=== PATIENT | male | born 1985 | race Caucasian/White ===

== ENCOUNTER 2017-09-11 19:28 | Emergency (ER) | payer OTHER, SELFPAY ==
[2017-09-11 19:38] VITALS: BP 126/75; PULSE 80; RESP 16; TEMP 36.8; O2SAT 98
--- NOTE | 2017-09-11 19:52 | DI.REPORT_ITS ---
SYMPTOM/DIAGNOSIS: PATELLA PAIN AFTER ANTERIOR CONTUSION RIGHT KNEE: Three views. No priors for comparison No acute fracture or dislocation is identified. No radiopaque foreign bodies are seen in the soft tissues. There is mild soft tissue swelling seen in the prepatellar soft tissues. IMPRESSION: No acute fracture or dislocation. 2. Mild soft tissue swelling anteriorly.
--- NOTE | 2017-09-11 19:54 | ED.GENADUL ---
Disposition Clinical Impression: Contusion of right patella Disposition: HOME Condition: Good Instructions: Contusion in Adults (ED) Additional Instructions: Home to rest today. Elevate leg to reduce pain and swelling. May apply ice to reduce pain and swelling 20 minutes at a time. Tylenol and/or ibuprofen if needed for discomfort. 2 days off of work. Return to the ER for any acute concerns. Forms: Work Release Medical Decision Making - Medical Decision Making This is a 32-year-old male with right anterior knee contusion yesterday, followed by pain and swelling today. Differential diagnosis would include bony contusion versus underlying osseous injury. Patient referred for x-ray without evidence of underlying acute bony injury. Stable for discharge home with conservative management of patella contusion. 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 Did not suffer any other injury. He did not fall or hurt himself. Since that time he has had the gradual onset of moderate, achy, constant nonradiating anterior knee pain on the right. Worse with movement, improved with rest. He tried to go to back to work tonight and was referred to the emergency room due to the pain. - Related Data Allergies Allergy/AdvReac Type Severity Reaction Status Date / Time bee venom protein (honey bee) Allergy Mild Skin Rash Unverified 09/11/17 19:37 acetaminophen [From Vicodin] AdvReac Intermediate Unverified 09/11/17 19:37 hydrocodone [From Vicodin] AdvReac Intermediate Unverified 09/11/17 19:37 oxycodone [From Percocet] AdvReac Intermediate Unverified 09/11/17 19:37 Review of Systems Other: 4 systems reviewed, otherwise negative Past Medical History - Past Medical History Medical history: no medical history Surgical history: no surgical history Family history: no significant family history - Social History Alcohol use: rarely Drug use: marijuana General Exam - General Limitations: no limitations General appearance: alert, in no apparent distress - Head Head exam: Present: atraumatic, normocephalic - Eye Eye exam: Present: PERRL, EOMI - Respiratory Respiratory exam: Absent: respiratory distress - Extremities Exam Extremities exam: Present: tenderness, normal capillary refill, other (Right anterior patella abrasion, tenderness. There is no laxity of the joint. No tenderness of the tibia, fibula, distal femur. Full range of motion.) - Neurological Exam Neurological exam: Present: alert, oriented X3 - Psychiatric Psychiatric exam: Present: normal affect, normal mood - Skin Skin exam: Present: warm, dry, intact Course Vital Signs - 24 hr 09/11/17 19:38 Temperature 36.8 C Pulse 80 Respiratory 16 Rate Blood Pressure 126/75 Pulse Oximetry 98
--- NOTE | 2017-09-11 20:32 | DI.VRAD_ITS ---
EXAM: XR Right Knee, 3 views CLINICAL HISTORY: 32 years old, male; Pain; Knee; Right; Patient HX: Patella pain after anterior contusion TECHNIQUE: Three views of the right knee. COMPARISON: CR - LEFT KNEE 3 VIEW COMPLETE 2017-04-17 19:22 FINDINGS: Bones/joints: Unremarkable. No acute fracture. No dislocation. Soft tissues: The lateral view demonstrates some mild-moderate anterior prepatellar soft tissue swelling present. IMPRESSION: 1. Mild-moderate anterior prepatellar soft tissue swelling is demonstrated in the lateral view. Dictated and Authenticated by: Ochoa Cast MD. Ordering:JAYDEN TOSCANO MD
== END 2017-09-11 20:36 | disposition home or self-care (01) ==
PROVIDERS: Emergency Provider Emergency Medicine
DX: S80.01XA Contusion of right knee, initial encounter (principal); W22.8XXA Striking against or struck by other objects, initial encounter
CPT/HCPCS: 73562; 99283

== ENCOUNTER → 2017-09-14 14:53 | Outpatient (CLI) | payer OTHER, SELFPAY ==
--- NOTE | 2017-09-18 11:10 | ONE_ITS ---
DATE OF SERVICE: September 14, 2017 CHIEF COMPLAINT: Right knee pain. ASSESSMENT: Right anterior knee pain. EDUCATION: 1. Conservative management is often effective for resolution of symptoms. 2. Developing healthy coping strategies for ADHD and depression would better benefit Hung than THC usage. PLAN: 1. Work restrictions - refer to Work Status Form. 2. Ibuprofen 800 mg TID (#42). 3. Ice PRN. 4. Occ Med follow-up in one week. Return to clinic sooner if condition worsens. More than 50% of this visit spent in the planning and coordination of care. Plan of care reviewed with patient who verbalized understanding and agreement. 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 Around 8:30 p.m. on 09/10/17 Hung was quickly moving to the side of his machine. He jumped onto a small ramp, missed his footing, and hit his right knee on the hand railing located to the right. Hung was able to continue working his shift without difficulty. He slept well that night. The next morning, 09/11/17, his knee was quite sore and it was difficult to bend. He went to [facility] who wanted to wait for the swelling to decrease before proceeding with x-rays. At work around 7:30 p.m. he informed his employer he was having no relief of pain and the stiffness was worsening. His employer instructed Hung to present to [facility] ED. Hung presents to Occupational Medicine at the request of his employer today. Current discomfort = 4-5/10 and is described as an ache; this ache has decreased from 7/10. He has a limp and notes stairs are difficult. He is able to perform his work duties and ADLs without difficulty. Hung denies prior right injury or surgery. REVIEW OF SYSTEMS: Denies chest pain, palpitations. Denies shortness of breath, dyspnea. Denies headache, visual changes. Denies GI or complaints. PAST MEDICAL HISTORY: 1. Depression. 2. ADHD. 3. Left knee arthritis. 4. Tooth abscess. SOCIAL: Tobacco: 3/4 pack per day. EtOH: None. THC: Self-medicates for ADHD and depression daily. Exercise: Daily walking. Single. Education: High school graduate. MEDICATIONS: PCN - tooth abscess. ALLERGIES: 1. Oxycodone. 2. Hydrocodone. OBJECTIVE: VITAL SIGNS: 120/70, 100.4 -- 80 -- 18. Height 6'. Weight 196. BMI 26.6. PHQ-9 = 11 (moderate) GENERAL: 32-year-old white male. Alert, oriented x3. Conversation appropriate , pleasant. Antalgic gait. CARDIAC: HRR, no murmurs or extra heart sounds. RESPIRATORY: Lungs bilaterally CTA. Respirations unlabored. KNEES: Oliver in color, warm and dry to touch. No evidence of erythema or edema bilaterally. TESTS: Anterior and posterior drawer tests negative bilaterally. Valgus and varus stress test negative bilaterally. RIGHT KNEE: Slight ecchymosis noted medial aspect measuring 5 cm in diameter. Posterior and lateral aspect nontender. Generalized discomfort noted anterior and medial aspect with increased sensitivity of patella. TESTS: Flexion limited to 120 degrees. Extension limited to 5 degrees. Positive patella grind test and positive patella apprehension test. DIAGNOSTIC IMAGIN09/11/17, right knee - IMPRESSION: Mild/moderate anterior prepatellar soft tissue swelling is demonstrated in the lateral view. No acute fracture. No dislocation.
== END ==
PROVIDERS: Visit Provider Nurse Practitioner Family
DX: M25.561 Pain in right knee (principal); W22.09XA Striking against other stationary object, initial encounter; Y99.0 Civilian activity done for income or pay
CPT/HCPCS: 99203

== ENCOUNTER → 2017-09-21 11:22 | Outpatient (CLI) | payer OTHER, SELFPAY ==
--- NOTE | 2017-09-22 13:51 | ONE_ITS ---
DATE OF SERVICE: September 21, 2017 CHIEF COMPLAINT: Right knee pain. 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 ASSESSMENT: Right anterior knee pain. EDUCATION: Good improvement noted with conservative management. PLAN: 1. No work restrictions. 2. Ibuprofen 800 mg t.i.d. p.r.n. 3. Ice p.r.n. 4. Occupational Medicine follow-up appointment in two weeks; return to clinic sooner if condition worsens. Anticipate MMI. More than 50% of this visit spent in the planning and coordination of care. Plan of care reviewed with patient, who verbalized understanding and agreement. ++++++++++++++++++ SUBJECTIVE: Hung presents for c/o right knee pain. Improvement noted since last exam. Discomfort is described as an ache; has decreased to 2/10; remains the medial aspect and is now intermittent. Ache is most noticeable at night. Self-medicating with ibuprofen t.i.d. with good relief. Icing knee 10-20 minutes q1h with good relief. Has also been applying CBD icy hot, which he thinks is beneficial. Ascending and descending stairs is easier. Performing work duties under work restrictions without difficulty. Sleep quality is good. REVIEW OF SYSTEMS: Denies chest pain, palpitations. Denies shortness of breath, dyspnea. Denies headache, visual changes. Denies GI or complaints. PAST MEDICAL HISTORY: 1. Depression. 2. ADHD. 3. Left knee arthritis. 4. Tooth abscess. SOCIAL: Tobacco: 3/4 pack per day. EtOH: None. THC: Self-medicates for ADHD and depression daily. Exercise: Daily walking. Single. Education: High school graduate. MEDICATIONS: PCN - tooth abscess. Ibuprofen. ALLERGIES: 1. Oxycodone. 2. Hydrocodone. OBJECTIVE: GENERAL: 32-year-old white male. Alert, oriented x3. Conversation appropriate. Slightly antalgic gait. RIGHT KNEE: Ecchymosis medial aspect no longer apparent. Posterior and lateral aspects remain nontender. No longer has generalized discomfort anterior and medial aspect and patella is nontender. TESTS: Able to perform deep squat without difficulty. Slight ache noted with assuming standing position.
== END ==
PROVIDERS: Visit Provider Nurse Practitioner Family
DX: M25.561 Pain in right knee (principal)
CPT/HCPCS: 99214

== ENCOUNTER 2017-10-05 13:33 | Outpatient (CLI) | payer SELFPAY ==
--- NOTE | 2017-10-05 15:45 | ONE_ITS ---
DATE OF SERVICE: October 05, 2017 CHIEF COMPLAINT: Right knee pain. 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 ASSESSMENT: Right anterior knee pain. PLAN: 1. MMI. More than 50% of this visit spent in the planning and coordination of care. Plan of care reviewed with patient, who verbalized understanding and agreement. ++++++++++++++++++ SUBJECTIVE: Hung presents for follow-up of right knee pain. States he is almost 100% and is ready to be released to full duty. Hung acknowledges having a slight ache which he attributes to a [id number] activity. He continues with one tablet ibuprofen 4 times per week, usually at night. Sleep pattern is normal. Performing activities at work and home without difficulty or discomfort. REVIEW OF SYSTEMS: Denies chest pain, palpitations. Denies shortness of breath, dyspnea. Denies headache, visual changes. Denies GI or complaints. PAST MEDICAL HISTORY: 1. Depression. 2. ADHD. 3. Left knee arthritis. 4. Tooth abscess. SOCIAL: Tobacco: 3/4 pack per day. ETOH: None. THC: Self-medicates for ADHD and depression daily. Exercise: Daily walking. Single. Education: High school graduate. MEDICATIONS: Ibuprofen. ALLERGIES: 1. Oxycodone. 2. Hydrocodone. OBJECTIVE: GENERAL: 32-year-old white male. Alert, oriented x3. Conversation appropriate , smiling. Smooth, easy, nonantalgic gait. RIGHT KNEE: No discomfort noted. Performed deep squat and assumed standing position without difficulty or discomfort.
== END 2017-10-05 13:34 ==
PROVIDERS: Visit Provider Nurse Practitioner Family
DX: M25.561 Pain in right knee (principal); S80.01XD Contusion of right knee, subsequent encounter
CPT/HCPCS: 99214

== ENCOUNTER 2018-01-04 19:44 | Emergency (ER) | payer OTHER, SELFPAY ==
[2018-01-04 19:56] VITALS: BP 112/65; PULSE 84; RESP 20; TEMP 36.9; O2SAT 96
--- NOTE | 2018-01-04 20:05 | W.ED.GENAD ---
Discharge Plan Disposition Patient Disposition: HOME Condition: Good Discharge Details Chief Complaint: Orthopedic Clinical Impression: Knee pain, left Primary Care Provider: None,None ED Provider: Obie Tomas Home Meds and New Rx's Prescriptions: No Action No Known Home Meds RF: 0 Discharge Instructions Instructions: Knee Pain (ED) Stand Alone Forms: Work Release Medical Decision Making 32 yo male who denies chronic medical problems comes in with left knee pain that started last night, denies falls or other trauma. He does state he walks quite a bit. He has pain with palpation to the left posterior knee without palabple defect and normal viscual inspection, no swelling or redness or warmth and no swelling of the leg or calf pain. Suspect strain vs mcconnell's cyst. No findings to suggest dvt at this time. No findings to suggest septic joint. No trauma and full rom without significant pain so doubt fx. ADvised RICE and f/u with pcp if pain continues and return precautions given Differential Diagnosis strain, mcconnell's cyst, contusion HPI General Mode of arrival: ambulatory. Date/Time Provider Initiated Documentation: 01/04/18 20:01. Limitations to Documentation: no limitations. Information obtained by: patient. History of Present Illness 32 year old M presents to the emergency department with the chief complaint of left knee pain, described as mild, with intensity rated at 3. Quality is described as aching, and is localized to the left and lower extremity. Patient reports no radiation. Patient started experiencing this day(s) (1) and it has been constant. No relieving factors improve symptom(s), No exacerbating factors reported . Patient notes no other symptoms.. Patient did receive the following treatments prior to arrival, none Related Data Home Medications Medication Instructions Recorded Confirmed Unknown [No Known Home Meds] 01/04/18 01/04/18 Allergies Allergy/AdvReac Type Severity Reaction Status Date / Time bee venom protein (honey bee) Allergy Mild Skin Rash Unverified 01/04/18 19:58 acetaminophen [From Vicodin] AdvReac Intermediate Unverified 01/04/18 19:58 hydrocodone [From Vicodin] AdvReac Intermediate Unverified 01/04/18 19:58 oxycodone [From Percocet] AdvReac Intermediate Unverified 01/04/18 19:58 General Stated Complaint: Orthopedic FABI: 3 Review of Systems Review of Systems All systems reviewed & are unremarkable except as noted in HPI and below Constitutional Denies chills, Denies fever(s) and Denies weakness Cardiovascular Denies chest pain and Denies dyspnea Respiratory Denies dyspnea Gastrointestinal Denies abdominal pain, Denies nausea and Denies vomiting Musculoskeletal Denies joint swelling Neurologic Denies weakness Psychiatric Denies depression [facility] Social History Smoking/Tobacco Use Status: Current every day Social History Smoking/Tobacco Use Status: Current every day Exam Const General: no acute distress Orientation: alert HENMT Head: normal to inspection Ears: external ears normal General nose exam: external nose normal Mouth: moist mucous membranes Eyes General: appearance normal, both eyes and all related structures Neck Neck: normal visual inspection Resp Effort & Inspection: normal respiratory effort and able to speak in complete sentences Cardio Rate: regular rate Skin General skin exam: no rashes or lesions noted Neuro General: alert and oriented x3 Extrem General: normal to inspection, full ROM and normal capillary refill Psych Mental Status: mental status grossly normal Course Vital Signs Temperature 36.9 C 01/04/18 19:56 Pulse 84 01/04/18 19:56 Respiratory Rate 20 01/04/18 19:56 Blood Pressure 112/65 01/04/18 19:56 Pulse Oximetry 96 01/04/18 19:56 Temperature 36.9 C 01/04/18 19:56 Temperature Source Temporal Artery Scan 01/04/18 19:56 Pulse 84 01/04/18 19:56 Respiratory Rate 20 01/04/18 19:56 Respiratory Effort Non-Labored 01/04/18 19:56 Blood Pressure 112/65 01/04/18 19:56 Pulse Oximetry 96 01/04/18 19:56 Pain Level 8 01/04/18 19:58
--- NOTE | 2018-01-04 20:09 | ED.GENADUL_ITS ---
Discharge Plan Disposition Patient Disposition: HOME Condition: Good Discharge Details Chief Complaint: Orthopedic Clinical Impression: Knee pain, left Primary Care Provider: None,None ED Provider: Obie Tomas Home Meds and New Rx's Prescriptions: No Action No Known Home Meds RF: 0 Discharge Instructions Instructions: Knee Pain (ED) Stand Alone Forms: Work Release Medical Decision Making 32 yo male who denies chronic medical problems comes in with left knee pain that started last night, denies falls or other trauma. He does state he walks quite a bit. He has pain with palpation to the left posterior knee without palabple defect and normal viscual inspection, no swelling or redness or warmth and no swelling of the leg or calf pain. Suspect strain vs mcconnell's cyst. No findings to suggest dvt at this time. No findings to suggest septic joint. No trauma and full rom without significant pain so doubt fx. ADvised RICE and f/u with pcp if pain continues and return precautions given Differential Diagnosis strain, mcconnell's cyst, contusion HPI General Mode of arrival: ambulatory . Date/Time Provider Initiated Documentation: 01/04/18 20:01 . Limitations to Documentation: no limitations . Information obtained by: patient . History of Present Illness 32 year old M presents to the emergency department with the chief complaint of left knee pain, described as mild, with intensity rated at 3. Quality is described as aching, and is localized to the left and lower extremity. Patient reports no radiation. Patient started experiencing this day(s) (1) and it has been constant. No relieving factors improve symptom(s), No exacerbating factors reported . Patient notes no other symptoms.. Patient did receive the following treatments prior to arrival, none Related Data Home Medications Medication Instructions Recorded Confirmed Unknown [No Known Home Meds] 01/04/18 01/04/18 Allergies Allergy/AdvReac Type Severity Reaction Status Date / Time bee venom protein (honey bee) Allergy Mild Skin Rash Unverified 01/04/18 19:58 acetaminophen [From Vicodin] AdvReac Intermediate Unverified 01/04/18 19:58 hydrocodone [From Vicodin] AdvReac Intermediate Unverified 01/04/18 19:58 oxycodone [From Percocet] AdvReac Intermediate Unverified 01/04/18 19:58 General Stated Complaint: Orthopedic FABI: 3 Review of Systems Review of Systems All systems reviewed & are unremarkable except as noted in HPI and below Constitutional Denies chills, Denies fever(s) and Denies weakness Cardiovascular Denies chest pain and Denies dyspnea Respiratory Denies dyspnea Gastrointestinal Denies abdominal pain, Denies nausea and Denies vomiting Musculoskeletal Denies joint swelling Neurologic Denies weakness Psychiatric Denies depression [facility] Social History Smoking/Tobacco Use Status: Current every day Social History Smoking/Tobacco Use Status: Current every day Exam Const General: no acute distress Orientation: alert HENMT Head: normal to inspection Ears: external ears normal General nose exam: external nose normal Mouth: moist mucous membranes Eyes General: appearance normal, both eyes and all related structures Neck Neck: normal visual inspection Resp Effort & Inspection: normal respiratory effort and able to speak in complete sentences Cardio Rate: regular rate Skin General skin exam: no rashes or lesions noted Neuro General: alert and oriented x3 Extrem General: normal to inspection, full ROM and normal capillary refill Psych Mental Status: mental status grossly normal Course Vital Signs Temperature 36.9 C 01/04/18 19:56 Pulse 84 01/04/18 19:56 Respiratory Rate 20 01/04/18 19:56 Blood Pressure 112/65 01/04/18 19:56 Pulse Oximetry 96 01/04/18 19:56 Temperature 36.9 C 01/04/18 19:56 Temperature Source Temporal Artery Scan 01/04/18 19:56 Pulse 84 01/04/18 19:56 Respiratory Rate 20 01/04/18 19:56 Respiratory Effort Non-Labored 01/04/18 19:56 Blood Pressure 112/65 01/04/18 19:56 Pulse Oximetry 96 01/04/18 19:56 Pain Level 8 01/04/18 19:58
[2018-01-04 20:42] VITALS: BP 112/65; PULSE 84; RESP 20; TEMP 36.9; O2SAT 96
== END 2018-01-04 20:42 | disposition home or self-care (01) ==
PROVIDERS: Emergency Provider Emergency Medicine
DX: M25.562 Pain in left knee (principal)
CPT/HCPCS: 99282

== ENCOUNTER 2018-01-19 12:39 | Emergency (ER) | payer OTHER, SELFPAY ==
[2018-01-19 12:48] VITALS: BP 119/80; PULSE 76; RESP 16; TEMP 37.1; O2SAT 97
--- NOTE | 2018-01-19 12:55 | W.ED.GENAD ---
Discharge Plan Disposition Patient Disposition: HOME Condition: Good Discharge Details Chief Complaint: EarProblem Clinical Impression: Acute pain of left ear Primary Care Provider: None,None ED Provider: Lindy Dhillon Home Meds and New Rx's Prescriptions: No Action No Known Home Meds RF: 0 Discharge Instructions Instructions: Earache (ED) Additional Instructions: Encourage hydration. Tylenol and/or Motrin as needed for discomfort. At this time there is no evidence of infection. Have asked morning caregiver to help establish PCP Seek care urgently once again if you develop fevers/chills, increased pain, drainage or other new/worsening symptoms. Medical Decision Making Patient is 32-year-old male presented today with chief complaint of left ear pain. He reports that left ear pain began 3 days ago. Pain is remained persistent. It did improve after he took naproxen this morning. Denies any fevers or chills. No change in hearing. Is not noted any discharge. No trauma. States that he was ill with a cold a few weeks ago but this has since seemed to subside. Denies any sinus discomfort, rhinorrhea or cough. On exam, no signs of infection. TM is not erythematous, no bulgig or loss of landmarks. TM intact, no drainage. No mastoid tenderness, no lymphadenopathy. Advised that there is no evidence acute infection. discussed that htis may be associates with eustachian tube dysfunction. Advised on OTC options to help with symptomatic management. Will give po Tylenol. Discussed new/worsneing symptomst and hwen to seek care urgently once again. All of his quesitons and concerns were addressed, he is in agreement with this plan. HPI General Mode of arrival: ambulatory. Date/Time Provider Initiated Documentation: 01/19/18 12:49. Limitations to Documentation: no limitations. Information obtained by: patient. History of Present Illness 32 year old M presents to the emergency department with the chief complaint of left ear pain, described as moderate, with intensity rated at 5. Quality is described as aching, Patient reports no radiation. Patient started experiencing this day(s) and it has been constant. No relieving factors improve symptom(s), No exacerbating factors reported . Patient notes no other symptoms.; denies chest pain, cough, fever/chills, headaches, nausea/vomiting and rash. Patient did receive the following treatments prior to arrival, NSAID Related Data Home Medications Medication Instructions Recorded Confirmed Unknown [No Known Home Meds] 01/04/18 01/19/18 Allergies Allergy/AdvReac Type Severity Reaction Status Date / Time bee venom protein (honey bee) Allergy Mild Skin Rash Unverified 01/19/18 12:51 acetaminophen [From Vicodin] AdvReac Intermediate Unverified 01/04/18 19:58 hydrocodone [From Vicodin] AdvReac Intermediate Unverified 01/19/18 12:51 oxycodone [From Percocet] AdvReac Intermediate Unverified 01/19/18 12:51 General Stated Complaint: EarProblem FABI: 5 Review of Systems Constitutional Reports as per HPI and Denies headache(s) Eyes Reports as per HPI, Denies eye discharge and Denies irritation ENT Reports as per HPI, Denies abnormal hearing, Denies dental pain, Denies dizziness, Denies ear discharge, Reports otalgia, Denies headache(s), Denies hearing loss, Denies nasal discharge, Denies nasal obstruction, Denies sinus pain, Denies sinus pressure and Denies sore throat Cardiovascular Reports as per HPI, Denies chest pain and Denies dyspnea Respiratory Reports as per HPI, Denies cough and Denies dyspnea Gastrointestinal Reports as per HPI, Denies abdominal pain, Denies change in bowel habits, Denies nausea and Denies vomiting Integumentary/Breasts Reports as per HPI and Denies rash Neurologic Denies abnormal hearing, Denies dizziness and Denies headache(s) [facility] Social History Smoking/Tobacco Use Status: Current every day Exam Const General: cooperative, healthy appearing, comfortable, no acute distress, well developed and well groomed Nutritional Appearance: average body habitus and well nourished Orientation: alert and awake [facility] Head: normal to inspection, normocephalic and atraumatic Ears: hearing grossly normal bilaterally, external ears normal and TM's normal bilaterally General nose exam: external nose normal and nares normal Face and sinus: normal facial exam, sinuses nontender and face symmetric Mouth: oral mucosae normal, lip normal, tongue normal, oropharynx normal and moist mucous membranes Teeth and gingiva: dentition normal Throat: posterior oropharynx normal, tonsils normal and uvula midline Eyes General: appearance normal, both eyes and all related structures Neck Neck: normal visual inspection, full ROM, no lymphadenopathy and no meningeal signs Resp Effort & Inspection: normal respiratory effort, able to speak in complete sentences and no respiratory distress Auscultation: clear to auscultation bilaterally, no rales, no rhonchi and no wheezes Cardio Rate: regular rate Rhythm: regular rhythm Heart Sounds: S1 normal and S2 normal Skin General skin exam: no rashes or lesions noted Neuro General: alert and awake Cognition: normal cognition Speech: speech normal Gait: normal gait Psych Appearance: grossly normal and well kempt Mental Status: mental status grossly normal Speech and Movement: speech and movement normal Course Vital Signs Temperature 37.1 C 01/19/18 12:48 Pulse 76 01/19/18 12:48 Respiratory Rate 16 01/19/18 12:48 Blood Pressure 119/80 01/19/18 12:48 Pulse Oximetry 97 01/19/18 12:48 Temperature 37.1 C 01/19/18 12:48 Temperature Source Skin 01/19/18 12:48 Pulse 76 01/19/18 12:48 Respiratory Rate 16 01/19/18 12:48 Blood Pressure 119/80 01/19/18 12:48 Blood Pressure Position Sitting 01/19/18 12:48 Pulse Oximetry 97 01/19/18 12:48 Oxygen Delivery Method Room Air 01/19/18 12:48 Oxygen Flow Rate 0 01/19/18 12:48 Pain Level 5 01/19/18 12:48
[2018-01-19] MEDS: Acetaminophen 500 MG TAB 1000 MG PO (13:02)
== END 2018-01-19 13:08 | disposition home or self-care (01) ==
LOC: ER 13:09
PROVIDERS: Emergency Provider Physician Assistant
DX: H92.02 Otalgia, left ear (principal); F17.210 Nicotine dependence, cigarettes, uncomplicated
CPT/HCPCS: 99282

== ENCOUNTER 2018-12-19 17:02 | Emergency (ER) | payer OTHER, SELFPAY ==
[2018-12-19 17:11] VITALS: BP 122/70; PULSE 89; RESP 18; TEMP 36.8; O2SAT 98
--- NOTE | 2018-12-19 17:15 | W.ED.GENAD ---
Discharge Plan Disposition Patient Disposition: HOME Condition: Good Discharge Details Chief Complaint: Dizzy/Sync Clinical Impression: Fatigue Primary Care Provider: None,None ED Provider: Lindy Dhillon Home Meds and New Rx's Prescriptions: No Action No Known Home Meds RF: 0 Discharge Instructions Instructions: Fatigue (ED) Additional Instructions: Encourage hydration. Encourage rest. merchandising coordinator will contact you regarding primary care. If you develop fevers/chills, return of symptoms or other new/worsening symptoms please seek care urgently once again. Stand Alone Forms: Work Release Discharge Data Discharge Date/Time-TO BE ENTERED AT DEPARTURE: 12/19/18 19:50 Medical Decision Making Patient is a 33-year-old male presenting today with chief complaint of lapse in memory while driving to work this afternoon. He has had diminished sleep. No fevers or chills. Denies any headache. No focal neurologic deficit. He has not had symptoms like this historically. Is feeling well at this point. On exam, patient appears nontoxic. Neurologic exam is intact. Normal cardiovascular exam. No cardiovascular symptoms. Denies any drug or alcohol use. No recent change of medication. Denies any herbal supplementation or [id number] medications. Plan for labs. As the patient is not endorsing headache, has no neurologic deficit, do not feel that imaging is appropriate or warranted at this time. BGL normal. Labs reviewed. Patient has mild leukocytosis with white count of 13.4. Labs otherwise unremarkable. Patient is positive for THC. Discussed with the patient his symptoms are likely associate with fatigue. He continues to feel well at this point has no symptoms. Has been feeling well since being here. Patient discharged home, was sent home with significant other who will be driving. He is given strict return precautions. Patient does not have a primary care, I have asked her manager medicare marketing help facilitate follow-up appointment for reevaluation. He was given strict return precautions. All his questions and concerns were addressed and is in agreement this plan. HPI General Mode of arrival: ambulatory. Date/Time Provider Initiated Documentation: 12/19/18 17:15. Limitations to Documentation: no limitations. Information obtained by: patient and RN notes reviewed. HPI Narrative: Patient is a 33-year-old male presenting today with chief complaint of change in memory. Reports that he typically works nights. Had a particularly small amount of sleep last night. States he awoke this afternoon feeling otherwise typical. However, partly through his drive, he is a sudden lapse in memory. Does not remember driving to work. States that his memory of being at work is foggy. States that he did have a discussion with his employer who felt that he was not mentating per his typical and felt that he was slow. States that he is feeling currently well. Denies any past medical history. No fevers or chills. No headache. No visual changes. Patient does not have any past medical history. Medical history concerning for diabetes. States he did have crackers upon awakening. Does report mild URI symptoms last night and felt like I was coming down with cold. Related Data Home Medications Medication Instructions Recorded Confirmed Unknown [No Known Home Meds] 01/04/18 12/19/18 Allergies Allergy/AdvReac Type Severity Reaction Status Date / Time bee venom protein (honey bee) Allergy Mild Skin Rash Unverified 12/19/18 17:16 acetaminophen [From Vicodin] AdvReac Intermediate Unverified 12/19/18 17:16 hydrocodone [From Vicodin] AdvReac Intermediate Unverified 12/19/18 17:16 oxycodone [From Percocet] AdvReac Intermediate Unverified 12/19/18 17:16 General Stated Complaint: Dizzy/Sync FABI: 3 Review of Systems Constitutional Constitutional: Reports as per HPI, Denies chills, Reports fatigue, Denies fever(s), Denies frequent falls, Denies headache(s), Denies snoring and Denies weakness Eyes Eyes: Reports as per HPI, Denies blurry vision, Denies change in vision and Reports photophobia ENT Ears, Nose, Mouth, and Throat: Denies vertigo, Denies headache(s) and Denies neck pain Cardiovascular Cardiovascular: Reports as per HPI, Denies chest pain, Denies lightheadedness, Denies radiating jaw, neck or arm pain, Denies dyspnea and Denies dyspnea on exertion Respiratory Respiratory: Reports as per HPI, Denies chest congestion, Denies cough, Denies dyspnea, Denies dyspnea on exertion, Denies snoring, Denies stridor and Denies wheezing Gastrointestinal Gastrointestinal: Reports as per HPI, Denies abdominal pain, Denies change in bowel habits, Denies nausea and Denies vomiting Genitourinary Genitourinary: Reports system reviewed and no additional complaints, except as docu (denies change in urinary habits) Musculoskeletal Musculoskeletal: Reports as per HPI, Denies back pain, Denies myalgias, Denies muscle cramps, Denies neck pain and Denies numbness Integumentary/Breasts Skin/Breast: Reports as per HPI and Denies rash Neurologic Neurologic: Reports as per HPI, Denies abnormal movements, Denies abnormal speech, Denies behavioral changes, Denies confusion, Denies vertigo, Denies frequent falls, Denies headache(s), Denies focal weakness, Reports memory loss, Denies numbness, Denies sensory deficit and Denies weakness Psychiatric Psychiatric: Denies behavioral changes, Denies confusion and Reports memory loss Endocrine Endocrine: Reports fatigue Allergic/Immunologic Allergic/Immunologic: Denies wheezing [facility] Social History Smoking/Tobacco Use Status: Current every day Drug use: Daily Substance use type: does not use Do you feel safe in your relationship?: Yes Exam Const General: cooperative, healthy appearing, uncomfortable, no acute distress, well developed and well groomed Nutritional Appearance: average body habitus and well nourished Orientation: alert, awake and oriented x3 HENMT Head: normal to inspection, no palpable skull fracture, normocephalic and atraumatic Ears: hearing grossly normal bilaterally, external ears normal and TM's normal bilaterally General nose exam: external nose normal Mouth: oral mucosae normal and moist mucous membranes Throat: posterior oropharynx normal Eyes General: appearance normal, both eyes and all related structures Alignment and Position: alignment normal Periorbital: periorbital findings normal Eyelids: eyelids normal Sclera: sclerae normal Cornea: corneas normal Pupils: PERRL EOM: EOM intact bilaterally Neck Neck: normal visual inspection, full ROM, no lymphadenopathy and no meningeal signs Resp Effort & Inspection: normal respiratory effort, able to speak in complete sentences and no respiratory distress Auscultation: clear to auscultation bilaterally, no rales, no rhonchi and no wheezes Cardio Rate: regular rate Rhythm: regular rhythm Heart Sounds: S1 normal and S2 normal GI Inspection: normal to inspection and non-distended Palpation: soft, no hepatosplenomegaly, not firm, no guarding, not rigid and nontender Percussion: normal to percussion Auscultation: normal bowel sounds Back/Spine/Pelvis Cervical Spine: normal cervical lordosis and cervical ROM normal Skin General skin exam: no rashes or lesions noted Neuro General: alert, awake and oriented x3 Cranial Nerves: CN's II-XI intact bilaterally Cognition: normal cognition Speech: speech normal Gait: normal gait Motor: muscle tone normal throughout, strength 5/5 throughout, no pronator drift, no movement abnormalities noted and no fasciculations Sensory Exam: no sensory deficits noted Coordination: [id number] test normal and [id number] test normal Extrem General: normal to inspection, normal capillary refill, no pedal edema and no calf tenderness Psych Appearance: grossly normal and well kempt Mental Status: mental status grossly normal Speech and Movement: speech and movement normal Course Vital Signs Vital signs: Vital Signs Temperature 36.8 C 12/19/18 17:11 Pulse 89 12/19/18 17:11 Respiratory Rate 18 12/19/18 17:11 Blood Pressure 122/70 12/19/18 17:11 Pulse Oximetry 98 12/19/18 17:11 Temperature 36.8 C 12/19/18 17:11 Temperature Source Skin 12/19/18 17:11 Pulse 89 12/19/18 17:11 Respiratory Rate 18 12/19/18 17:11 Blood Pressure 122/70 12/19/18 17:11 Blood Pressure Position Sitting 12/19/18 17:11 Pulse Oximetry 98 12/19/18 17:11 Oxygen Delivery Method Room Air 12/19/18 17:11 Oxygen Flow Rate 0 12/19/18 17:11 Pain Level 2 12/19/18 17:11
[2018-12-19 18:30] LABS: Abs Immature Grans 0.04 k/cumm (0.0-0.09); Absolute Basophil Count 0.01 k/cumm (0.0-0.2); Absolute Eosinophil Count 0.12 k/cumm (0.0-0.7); Absolute Lymphocyte Count 0.55 k/cumm (1.2-3.4); Absolute Monocyte Count 0.55 k/cumm (0.11-0.7); Basophils % 0.1; Eosinophils % 0.9; HCT 46.7 % (40.0-50.0); Immature Grans % 0.3; Lymphocytes % 4.1; Mean Corp. HGB Concentration 34.3 g/dL (32.0-36.0); Mean Corpuscular Hemoglobin 30.2 pg (27.0-33.0); Mean Corpuscular Volume 88.1 fL (80-95); Mean Platelet Volume 10.9 fL (8.0-11.0); Monocytes % 4.1; Neutrophils % 90.5; Platelet Count 285 x1000/uL (130-400); White Blood Cell Count 13.46 k/cumm (4.4-10.8)
[2018-12-19 18:38] LABS: Absolute Neutrophil Count 12.18 k/cumm (1.2-6.7)
[2018-12-19 18:53] LABS: ALT 29 U/L (16-63); AST 16 U/L (15-37); Albumin 3.9 g/dL (3.4-5.0); Alkaline Phosphatase 78 U/L (46-116); Anion Gap 11.8 mmol/L (3-11); BUN 12 mg/dL (7-18); Bilirubin, Total 0.5 mg/dL (0.2-1.0); CO2 22.2 mmol/L (21.0-32.0); CREATININE 1.08 mg/dL (0.70-1.30); Calcium 8.6 mg/dL (8.5-10.1); Chloride 103 mmol/L (98-107); Glucose 94 mg/dL (70-100); Sodium 137 mmol/L (136-145); TSH (W/Ref FT4) 0.32 uIU/mL (0.36-3.74); Total Protein 7.6 g/dL (6.4-8.2)
[2018-12-19 19:08] LABS: *AMPHETAMINES SCREEN URINE Negative (Negative); *BARBITURATES SCREEN URINE Negative (Negative); *BENZODIAZEPINES SCREEN URINE Negative (Negative); Cannabinoids THC POSITIVE (Negative); Cocaine Screen,Urine Negative (Negative); METHADONE URINE SCREEN Negative (Negative); OPIATES URINE SCREEN Negative (Negative)
[2018-12-19 19:10] LABS: Tricyclic Antidepressants Negative (Negative)
[2018-12-19 19:18] LABS: Clarity Clear (Clear); Specific Gravity >= 1.030 (1.005-1.025); pH 5.5 (5-8)
[2018-12-19 19:19] LABS: Bilirubin Negative (Negative); Blood Negative (Negative); Glucose Negative (Negative); Ketones Negative (Negative); Leukocyte Esterase Negative (Negative); Nitrite Negative (Negative); Urobilinogen 0.2 EU/dL (Up TO 0.2)
[2018-12-19 19:28] LABS: FREE T4 1.13 ng/dL (0.76-1.46)
[2018-12-19 19:30] LABS: ETHANOL BLOOD < 3.0 mg/dL (<3)
== END 2018-12-19 19:50 | disposition home or self-care (01) ==
PROVIDERS: Emergency Provider Physician Assistant
DX: R53.83 Other fatigue (principal); D72.829 Elevated white blood cell count, unspecified
CPT/HCPCS: 36415; 36416; 80053; 80307; 82962; 99283; 80320; 81003; 84439; 84443; 85025

== ENCOUNTER 2019-04-24 10:49 | Emergency (ER) | payer OTHER, SELFPAY ==
[2019-04-24 10:54] VITALS: BP 121/79; PULSE 86; RESP 14; TEMP 36.6; O2SAT 96
[2019-04-24 11:01] VITALS: RESP 16
--- NOTE | 2019-04-24 11:07 | ED.GENADUL_ITS ---
Discharge Plan Disposition Patient Disposition: HOME Condition: Stable Discharge Details Chief Complaint: GenMedical Clinical Impression: Encounter for medical screening examination Primary Care Provider: None,None ED Provider: Luis Null Home Meds and New Rx's Prescriptions: No Action No Known Home Meds RF: 0 Discharge Instructions Additional Instructions: At this time you are asymptomatic, I spoke with your daughter's power shovel operator and they see no indication for quarantine. From my standpoint you may return to work. Please watch for new or worsening symptoms and return to the ER or contact her primary care provider. Stand Alone Forms: Work Release Medical Decision Making Presents for a medical screening examination at the request of his employer. He is currently asymptomatic. I have a call placed out to his daughter's power shovel operator's office to see whether or not she is a person of interest in whether or not I can safely discharge this patient and allow him to return to work. Patient is aware of this plan and has no additional questions or concerns I received a phone call back. Apparently child has mild URI-like symptoms, no fever. Mild diarrhea. No recent travel or obvious coronavirus exposure. They are not recommending quarantine or any additional testing. With this being said I will clear Mr. Sue. Medical Records Medical records reviewed: Yes I reviewed the patient's medical records. HPI General Mode of arrival: ambulatory . Date/Time Provider Initiated Documentation: 04/24/19 10:50 . Limitations to Documentation: no limitations . Information obtained by: patient . HPI Narrative: This is a 34-year-old gentleman with no significant past medical history sent to the ER by his employer for a medical screening examination. Patient is currently asymptomatic. He does report that he is a smoker. Apparently his daughter has had a URI over the past 24 hours, subsequently seen in the ER last night at [facility] and now in the office of her power shovel operator. There is no known travel or positive contact with a suspected coronavirus patient. He denies any fever, cough, runny nose, ear pain, sore throat, abdominal pain, nausea, vomiting, chest pain, shortness of breath. Patient's daughter is currently being evaluated by her power shovel operator, I will reach out to them to see whether or not the child is a person of interest and whether or not I can safely return this gentleman back to work Related Data Home Medications Medication Instructions Recorded Confirmed Unknown [No Known Home Meds] 01/04/18 12/19/18 Allergies Allergy/AdvReac Type Severity Reaction Status Date / Time bee venom protein (honey bee) Allergy Mild Skin Rash Unverified 12/19/18 17:16 acetaminophen [From Vicodin] AdvReac Intermediate Unverified 12/19/18 17:16 hydrocodone [From Vicodin] AdvReac Intermediate Unverified 12/19/18 17:16 oxycodone [From Percocet] AdvReac Intermediate Unverified 12/19/18 17:16 General Stated Complaint: GenMedical FABI: 4 Review of Systems Constitutional Constitutional: Denies fever(s) and Denies headache(s) Eyes Eyes: Denies eye discharge ENT Ears, Nose, Mouth, and Throat: Denies headache(s), Denies nasal congestion, Denies nasal discharge and Denies sore throat Cardiovascular Cardiovascular: Denies chest pain and Denies dyspnea Respiratory Respiratory: Denies cough and Denies dyspnea Gastrointestinal Gastrointestinal: Denies abdominal pain, Denies nausea and Denies vomiting Musculoskeletal Musculoskeletal: Denies myalgias Integumentary/Breasts Skin/Breast: Denies rash Neurologic Neurologic: Denies headache(s) [facility] Social History Smoking/Tobacco Use Status: Current every day Tobacco Type: cigarettes Alcohol Intake: never Drug use: Daily Substance use type: marijuana Do you feel safe at home: Yes Do you feel safe in your relationship?: Yes Exam Const General: cooperative, healthy appearing, comfortable and no acute distress Orientation: alert and awake HENMT Head: normal to inspection, normocephalic and atraumatic Ears: external ears normal, TM's normal bilaterally and EAC's normal General nose exam: external nose normal and no nasal discharge Mouth: oral mucosae normal and moist mucous membranes Throat: posterior oropharynx normal Eyes Conjunctivae: conjunctivae normal Neck Neck: normal visual inspection, full ROM, no lymphadenopathy, trachea midline and supple Resp Effort & Inspection: normal respiratory effort and able to speak in complete sentences Auscultation: clear to auscultation bilaterally Cardio Rate: regular rate Rhythm: regular rhythm GI Palpation: soft and nontender Skin General skin exam: no rashes or lesions noted Neuro General: patient alert, patient awake, moves all extremities and no focal motor deficits Sensory Exam: no sensory deficits noted Psych Appearance: grossly normal Mental Status: mental status grossly normal Course Vital Signs Vital signs: Vital Signs Temperature 36.6 C 04/24/19 10:54 Pulse 86 04/24/19 10:54 Respiratory Rate 14 04/24/19 10:54 Blood Pressure 121/79 04/24/19 10:54 Pulse Oximetry 96 04/24/19 10:54 Temperature 36.6 C 04/24/19 10:54 Temperature Source Tympanic 04/24/19 10:54 Pulse 86 04/24/19 10:54 Respiratory Rate 16 04/24/19 11:01 Respiratory Effort Non-Labored 04/24/19 11:01 Respiratory Depth Normal 04/24/19 11:01 Respiratory Pattern Normal 04/24/19 11:01 Blood Pressure 121/79 04/24/19 10:54 Blood Pressure Position Sitting 04/24/19 10:54 Pulse Oximetry 96 04/24/19 10:54 Oxygen Delivery Method Room Air 04/24/19 10:54 Oxygen Flow Rate 0 04/24/19 10:54 Pain Level 0 04/24/19 10:54
== END 2019-04-24 11:50 | disposition home or self-care (01) ==
PROVIDERS: Emergency Provider Physician Assistant
DX: Z04.89 Encounter for examination and observation for other specified reasons (principal)
CPT/HCPCS: 99281

== ENCOUNTER 2019-11-08 12:49 | Emergency (ER) | payer OTHER, SELFPAY ==
[2019-11-08 12:52] VITALS: BP 134/82; PULSE 74; RESP 20; TEMP 36.6; O2SAT 97
--- NOTE | 2019-11-08 13:08 | ED.GENADUL_ITS ---
Discharge Plan Disposition Patient Disposition: HOME Condition: Stable Discharge Details Clinical Impression: Tooth ache Primary Care Provider: None,None ED Provider: Nina Briseno Home Meds and New Rx's Prescriptions: New amoxicillin-pot clavulanate 875-125 mg tablet 1 tab PO BID 10 Days Qty: 20 RF: 0 No Action naproxen sodium [Aleve] 220 mg Capsule 440 mg PO PRN PRNRF: 0 Discharge Instructions Instructions: Toothache (ED) Additional Instructions: Follow up with primary care provider in 3-5 days. Return to ED sooner if any worsening or concerns. Increase oral fluids. Please take Tylenol or Ibuprofen with food every 4-6 hours as needed for pain and swelling. Use Hurricaine gel as instructed may apply up to 3 times daily as needed for pain. Take prescription as directed. Discharge Data Discharge Date/Time-TO BE ENTERED AT DEPARTURE: 11/08/19 13:28 Medical Decision Making Patient given Augmentin here in department and Hurricaine gel instructed on use, verbalized understanding. Will give dental resources to patient prior to discharge. HPI General Mode of arrival: ambulatory . Date/Time Provider Initiated Documentation: 11/08/19 12:53 . Limitations to Documentation: no limitations . Information obtained by: patient . HPI Narrative: 34-year-old male presents to the ER with poor dentition. He is complaining of a left lower molar toothache. Does have some increased swelling and pain noted to his left submandibular jaw. He does have palpable lymphadenopathy noted on that side. There is no area of abscess, drainage or palpable area of fluctuance noted. He has no other complaints at this time. Does appear that his condition is chronic he is a smoker. He does have multiple broken teeth with dental caries. He has been taking naproxen at home which has helped somewhat. He denies fever or trouble swallowing. Related Data Home Medications Medication Instructions Recorded Confirmed amoxicillin-pot clavulanate 1 tab PO BID 10 Days #20 tab 11/08/19 naproxen sodium [Aleve] 440 mg PO PRN PRN 11/08/19 11/08/19 Previous Rx's Medication Instructions Recorded amoxicillin-pot clavulanate 1 tab PO BID 10 Days #20 tab 11/08/19 Allergies Allergy/AdvReac Type Severity Reaction Status Date / Time bee venom protein (honey bee) Allergy Mild Skin Rash Unverified 11/08/19 12:55 acetaminophen [From Vicodin] AdvReac Intermediate Unverified 11/08/19 12:55 hydrocodone [From Vicodin] AdvReac Intermediate Unverified 11/08/19 12:55 oxycodone [From Percocet] AdvReac Intermediate Unverified 11/08/19 12:55 General Stated Complaint: DentalOral FABI: 4 Review of Systems All systems reviewed & are unremarkable except as noted in HPI and below ENT Ears, Nose, Mouth, and Throat: Reports dental pain [facility] Social History Smoking/Tobacco Use Status: Current every day Tobacco Type: cigarettes Alcohol Intake: never Drug use: Daily Substance use type: marijuana Do you feel safe at home: Yes Do you feel safe in your relationship?: Yes Exam HENMT Teeth and gingiva: caries and poor dentition Teeth image: 1. Broken tooth with gingival swelling noted around base, no fluctuance or visible abscess. Throat: posterior oropharynx abnormal erythema; no exudates Course Vital Signs Vital signs: Vital Signs Temperature 36.6 C 11/08/19 12:52 Pulse 74 11/08/19 12:52 Respiratory Rate 20 11/08/19 12:52 Blood Pressure 134/82 11/08/19 12:52 Pulse Oximetry 97 11/08/19 12:52 Temperature 36.6 C 11/08/19 12:52 Temperature Source Skin 11/08/19 12:52 Pulse 74 11/08/19 12:52 Respiratory Rate 20 11/08/19 12:52 Respiratory Effort Non-Labored 11/08/19 12:55 Blood Pressure 134/82 11/08/19 12:52 Blood Pressure Position Sitting 11/08/19 12:52 Pulse Oximetry 97 11/08/19 12:52 Oxygen Delivery Method Room Air 11/08/19 12:52 Oxygen Flow Rate 0 11/08/19 12:52 Pain Level 6 11/08/19 12:52
[2019-11-08] MEDS: Amoxicillin 875/Clav. 125 TAB PO (13:15)
[2019-11-08] MEDS: Benzocaine 20% Gel 30 GM JAR MM (13:19)
[2019-11-08 13:25] VITALS: BP 134/82; PULSE 74; RESP 20; TEMP 36.6; O2SAT 97
== END 2019-11-08 13:28 | disposition home or self-care (01) ==
PROVIDERS: Emergency Provider Registered Nurse Emergency
DX: R68.84 Jaw pain (principal); K08.89 Other specified disorders of teeth and supporting structures
CPT/HCPCS: 99283

== ENCOUNTER 2020-04-07 15:11 | Emergency (ER) | payer OTHER, SELFPAY ==
[2020-04-07 15:19] VITALS: BP 155/95; PULSE 88; RESP 16; TEMP 36.8; O2SAT 98
--- NOTE | 2020-04-07 15:22 | W.ED.GENAD ---
Discharge Plan Disposition Patient Disposition: HOME Condition: Stable Discharge Details Clinical Impression: Pain due to dental caries Primary Care Provider: None,None ED Provider: Nina Briseno Home Meds and New Rx's Prescriptions: No Action No Known Home Meds RF: 0 Discharge Instructions Instructions: Dental Caries (ED) Additional Instructions: Please see a dentist. It may help her to quit smoking. Use the topical anesthetic up to 3 times daily as needed. Take the tramadol once every 12 hours as directed. Please take Tylenol or Ibuprofen with food every 4-6 hours as needed for pain and swelling. Follow up with primary care provider in 3-5 days. Return to ED sooner if any worsening or concerns. Increase oral fluids. Stand Alone Forms: Work Release Discharge Data Discharge Date/Time-TO BE ENTERED AT DEPARTURE: 04/07/20 16:00 Medical Decision Making 35-year-old male presents to the ED with chief complaint of left upper and lower dental pain. He states it is gotten worse at Monday. He denies any fever chills, trouble swallowing, drainage. He does state that he is sensitive to hot foods or liquids, no facial swelling. He is a daily smoker, denies any drugs does endorse marijuana use. At this time there is no evidence of abscess, no drainage or any indication for antibiotic. Patient was given Hurricaine gel benzoin, with a tub to go. Was given 50 mg tramadol here in department and given 2 tablets to go. Offered dental block which patient refused at this time. We will provide dental resources for patient and strongly encourage follow-up with the dentist and or quit smoking. HPI General Mode of arrival: ambulatory. Date/Time Provider Initiated Documentation: 04/07/20 15:21. Limitations to Documentation: no limitations. Information obtained by: patient. HPI Narrative: 35-year-old male presents to the ED with chief complaint of left upper and lower dental pain. He states it is gotten worse at Monday. He denies any fever chills, trouble swallowing, drainage. He does state that he is sensitive to hot foods or liquids, no facial swelling. He is a daily smoker, denies any drugs does endorse marijuana use. Related Data Home Medications Medication Instructions Recorded Confirmed Unknown [No Known Home Meds] 04/07/20 04/07/20 Allergies Allergy/AdvReac Type Severity Reaction Status Date / Time bee venom protein (honey bee) Allergy Mild Skin Rash Unverified 11/08/19 12:55 hydrocodone [From Vicodin] AdvReac Intermediate Unverified 11/08/19 12:55 oxycodone [From Percocet] AdvReac Intermediate Unverified 11/08/19 12:55 General Stated Complaint: DentalOral FABI: 4 Review of Systems All systems reviewed & are unremarkable except as noted in HPI and below Constitutional Constitutional: Denies headache(s) ENT Ears, Nose, Mouth, and Throat: Denies bleeding gums, Reports dental pain, Denies dysphagia, Denies dizziness, Denies otalgia, Denies facial pain, Denies headache(s), Denies hoarseness, Denies lip swelling, Denies mouth lesions, Reports mouth pain, Denies nasal discharge, Denies neck pain, Denies odynophagia, Denies sinus pain, Denies sinus pressure, Denies sore throat and Denies throat swelling Comments: Tooth pain, poor dentition Gastrointestinal Gastrointestinal: Denies dysphagia and Denies odynophagia Musculoskeletal Musculoskeletal: Denies neck pain Neurologic Neurologic: Denies dizziness and Denies headache(s) Allergic/Immunologic Allergic/Immunologic: Denies lip swelling and Denies throat swelling [facility] Social History Smoking/Tobacco Use Status: Current every day Tobacco Type: cigarettes Smoking risk assessment performed?: Yes Alcohol Intake: never Drug use: Daily Substance use type: marijuana Do you feel safe at home: Yes Do you feel safe in your relationship?: Yes Exam Narrative Exam Narrative: Constitutional: Alert and oriented x3. Appears stated age. Normal body habitus. Head: Normocephalic, no trauma. Eyes: Pupils PERRLA, Red reflex noted, EOM's intact. Eyelids symmetrical without lesions, discharge, or swelling. ENT: Bilateral TM's WNL, External ear normal to inspection, no mastoid TTP, swelling, or erythema, Nasal turbinates WNL, no nasal discharge. Poor dentition throughout, no evidence of dental abscess, does have mild surrounding erythemic gingiva, no area of palpable fluctuance noted. Posterior pharynx WNL, no exudate. Chest: RRR, Normal S1, S2, distal pulses intact. Resp: Lungs clear to auscultation bilaterally, no wheezes, rales, or rhonchi. Musculoskeletal: Normal gait, 5/5 strength to all four extremities. Skin: No suspicious rashes or lesions. Capillary refill less than 2 sec. Neurologic: Cranial nerves II-XII intact. Alert and oriented x 3. DTR's intact. Hematologic/Lymphatic: No ecchymosis, no lymphadenopathy. Course Vital Signs Vital signs: Vital Signs Temperature 36.8 C 04/07/20 15:19 Pulse 88 04/07/20 15:19 Respiratory Rate 16 04/07/20 15:19 Blood Pressure 155/95 H 04/07/20 15:19 Pulse Oximetry 98 04/07/20 15:19 Temperature 36.8 C 04/07/20 15:19 Temperature Source Skin 04/07/20 15:19 Pulse 88 04/07/20 15:19 Respiratory Rate 16 04/07/20 15:19 Blood Pressure 155/95 H 04/07/20 15:19 Blood Pressure Position Sitting 04/07/20 15:19 Pulse Oximetry 98 04/07/20 15:19 Oxygen Delivery Method Room Air 04/07/20 15:19 Oxygen Flow Rate 0 04/07/20 15:19 Pain Level 10 04/07/20 15:19
[2020-04-07] MEDS: traMADol 50 MG TAB PO (15:43)
[2020-04-07] MEDS: Benzocaine 20% Gel 30 GM JAR MM (15:44)
--- NOTE | 2020-04-07 15:45 | NUR.NOTE ---
Nursing Note: Referral to establish care given to Care Management. Maggy Kaiser
== END 2020-04-07 16:00 | disposition home or self-care (01) ==
PROVIDERS: Emergency Provider Registered Nurse Emergency
DX: K02.9 Dental caries, unspecified (principal)
CPT/HCPCS: 99283

== ENCOUNTER 2020-12-24 15:05 | Emergency (ER) | payer SELFPAY ==
[2020-12-24 16:04] VITALS: BP 129/68; PULSE 82; RESP 16; TEMP 36.8; O2SAT 97
--- NOTE | 2020-12-24 17:20 | ED.GENADUL_ITS ---
Discharge Plan Disposition Patient Disposition: HOME Condition: Stable Discharge Details Clinical Impression: Left shoulder pain Primary Care Provider: None,None ED Provider: Luis Null Home Meds and New Rx's Prescriptions: New cyclobenzaprine 5 mg tablet 5 mg PO QHS PRNQty: 8 RF: 0 Discharge Instructions Instructions: Shoulder Pain (ED) Additional Instructions: Continue taking qbto-kma-aedohrk anti-inflammatory as directed. Rest, elevate, cool and/or warm compresses every 2 hours for 20 minutes. Wear sling as needed, advance activity as tolerated, she sure to do passive range of motion at least 4 times daily to avoid a frozen shoulder. Flexeril as directed, this medication may cause drowsiness. Please watch for new or worsening symptoms and return to the ER for any concerns. Lastly, I have given you the name and number of our local orthopedic team if your symptoms not improving with conservative measures over the next week. Referrals: Jae Don MD [ [facility] STAFF PHYSICIAN] - Discharge Data Discharge Date/Time-TO BE ENTERED AT DEPARTURE: 12/24/20 17:41 Medical Decision Making This is a 35-year-old male, [id number], denies significant past medical history, presents with left shoulder pain over the past few days, worse with movement and worse when lying down trying to go to bed. He has taken [id number] anti-inflammatories with minimal relief. 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 Patient denies any chest pain, radiation of pain in any direction. Denies cardiac past medical history for early cardiac history in his family. This certainly appears to be musculoskeletal in nature. Given the lack of trauma, x-ray likely little value as I see no indication of dislocation and/or fracture. We did discuss x-ray, patient is comfortable not pursuing x-ray at this time. We discussed options at this time, he is comfortable being discharged in his current condition. Will continue taking anti-inflammatories [id number], I will provide a sling, we discussed the importance of passive range of motion to avoid a frozen shoulder. I will provide a limited prescription of Flexeril to take at nighttime to help with the discomfort and sleeping. We discussed the importance of cool and/or warm compress. He was encouraged to return to the ER for new or worsening symptoms, otherwise I have given him the name and number of our local orthopedic team which she will follow up with in a week or so if symptoms are not improving with conservative measures patient has no additional questions or concerns. This documentation was generated using GoPollGoation system, please disregard any oddities of phrase or misspellings. Medical Records Medical records reviewed: Yes I reviewed the patient's medical records. HPI General Mode of arrival: ambulatory . Date/Time Provider Initiated Documentation: 12/24/20 16:14 . Limitations to Documentation: no limitations . Information obtained by: patient . HPI Narrative: This is a 35-year-old male, [id number], denies significant past medical history, presents to the ER complaining of superior and posterior left shoulder discomfort, moderate currently but worse with movement especially movement over the head. He denies radiation of pain, numbness, tingling, weakness, chest pain, shortness of breath, fever, previous shoulder injury. 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 He has been taking Aleve with minimal improvement. Patient denies any history of cardiac disease or early cardiac disease in his family. Patient states that he feels as though this is muscular in nature. Related Data Home Medications Medication Instructions Recorded Confirmed cyclobenzaprine 5 mg PO QHS PRN #8 tab 12/24/20 Previous Rx's Medication Instructions Recorded cyclobenzaprine 5 mg PO QHS PRN #8 tab 12/24/20 Allergies Allergy/AdvReac Type Severity Reaction Status Date / Time bee venom protein (honey bee) Allergy Mild Skin Rash Unverified 12/24/20 16:08 hydrocodone [From Vicodin] AdvReac Intermediate Unverified 12/24/20 16:08 oxycodone [From Percocet] AdvReac Intermediate Unverified 12/24/20 16:08 General Stated Complaint: Orthopedic FABI: 4 Review of Systems Constitutional Constitutional: Denies fatigue, Denies fever(s) and Denies weakness ENT Ears, Nose, Mouth, and Throat: Denies neck pain Cardiovascular Cardiovascular: Denies chest pain and Denies dyspnea Respiratory Respiratory: Denies cough and Denies dyspnea Gastrointestinal Gastrointestinal: Denies abdominal pain, Denies nausea and Denies vomiting Musculoskeletal Musculoskeletal: Denies back pain, Denies deformity, Reports arthralgias, Denies neck pain, Denies numbness, Reports stiffness and Denies tingling Integumentary/Breasts Skin/Breast: Denies rash Neurologic Neurologic: Denies numbness, Denies tingling and Denies weakness Endocrine Endocrine: Denies fatigue [facility] Active Problem List Pain due to dental caries (Acute) Left shoulder pain (Acute) Social History Smoking/Tobacco Use Status: Current every day Tobacco Type: cigarettes Smoking risk assessment performed?: Yes Alcohol Intake: never Drug use: Daily Substance use type: marijuana Do you feel safe at home: Yes Do you feel safe in your relationship?: Yes Exam Const General: cooperative, healthy appearing, comfortable and no acute distress Orientation: alert, awake and oriented x3 HENMT Head: normal to inspection, normocephalic and atraumatic Eyes General: appearance normal, both eyes and all related structures Conjunctivae: conjunctivae normal Neck Neck: normal visual inspection, full ROM, trachea midline, supple and nontender Chest Chest: normal palpation of entire chest wall Resp Effort & Inspection: normal respiratory effort and able to speak in complete sentences Auscultation: clear to auscultation bilaterally Cardio Rate: regular rate Rhythm: regular rhythm Back/Spine/Pelvis Back: no CVA tenderness and No back tenderness Skin General skin exam: no rashes or lesions noted Neuro General: patient alert, patient awake, moves all extremities and no focal motor deficits Cognition: normal cognition Speech: speech normal Gait: normal gait Motor: muscle tone normal throughout Sensory Exam: no sensory deficits noted Extrem General: normal to inspection, full ROM and capillary refill normal Other: Upper extremities 5 and 5 strength, equal radial pulse and normal capillary refill. Left shoulder has a normal physical appearance, he has diffuse discomfort across his left trapezius and diffuse discomfort on the posterior aspect of the scapula. He has full range of motion but he does wince in pain with movement greater than 90 degrees. There is no swelling, erythema, warmth, signs of trauma. Neuro, vascular, tendon intact. Psych Appearance: grossly normal Mental Status: mental status grossly normal Course Vital Signs Vital signs: Vital Signs Temperature 36.8 C 12/24/20 16:04 Pulse 82 12/24/20 16:04 Respiratory Rate 16 12/24/20 16:04 Blood Pressure 129/68 12/24/20 16:04 Pulse Oximetry 97 12/24/20 16:04 Temperature 36.8 C 12/24/20 16:04 Temperature Source Skin 12/24/20 16:04 Pulse 82 12/24/20 16:04 Respiratory Rate 16 12/24/20 16:04 Respiratory Effort Non-Labored 12/24/20 16:04 Blood Pressure 129/68 12/24/20 16:04 Blood Pressure Position Sitting 12/24/20 16:04 Pulse Oximetry 97 12/24/20 16:04 Oxygen Delivery Method Venti Mask 12/24/20 16:04 Pain Level 8 12/24/20 16:04
== END 2020-12-24 17:41 | disposition home or self-care (01) ==
PROVIDERS: Emergency Provider Physician Assistant
DX: M25.512 Pain in left shoulder (principal); X50.3XXA Overexertion from repetitive movements, initial encounter
CPT/HCPCS: 99283

== ENCOUNTER 2021-07-21 09:02 | Emergency (ER) | payer SELFPAY ==
[2021-07-21 09:06] VITALS: BP 118/75; PULSE 85; RESP 16; TEMP 36.8; O2SAT 98
--- NOTE | 2021-07-21 09:15 | DI.RAD_ITS ---
Exam(s) XR RIBS RT W PA LAT CHEST EXAM: XR RIBS RT W PA LAT CHEST CLINICAL HISTORY: pain right chest wall TECHNIQUE: 2D digital imaging was performed. COMPARISON: No exams were available for comparison FINDINGS: RIGHT RIBS: There are no acute right rib fractures evident. No lytic rib lesions identified. CHEST X-RAY: No lung contusion or pneumothorax. There is no pleural effusion evident. Heart size is normal and there is no significant mediastinal widening. IMPRESSION: 1. No right rib fractures evident. Also no obvious rib lesions. 2. No ipsilateral lung nor pleural abnormality evident. No pneumothorax. Both lungs are clear. DATA REPOSITORY: RADIATION DOSE DELIVERED:
--- NOTE | 2021-07-21 10:05 | ED.GENADUL_ITS ---
Discharge Plan Disposition Patient Disposition: HOME Condition: Good Discharge Details Clinical Impression: Acute chest wall pain, Intercostal muscle strain Primary Care Provider: None,None ED Provider: Tayler Valiente Home Meds and New Rx's Prescriptions: New cyclobenzaprine 10 mg tablet 10 mg PO TID PRNQty: 10 0RF Discharge Instructions Instructions: Muscle Strain (ED), Chest Wall Pain (ED) Additional Instructions: Take ibuprofen 600 mg every 8 hours as needed for pain Take Tylenol 650 mg every 6 hours as needed for breakthrough pain Take Flexeril as needed for persistent pain despite these interventions Continue to take deep breaths you do not develop pneumonia Should you develop persistent fever, chills, shortness of breath, please return to the emergency room for reassessment Stand Alone Forms: Work Release Discharge Data Discharge Date/Time-TO BE ENTERED AT DEPARTURE: 07/21/21 10:15 Medical Decision Making Pulmonary embolism rule out criteria negative No chest x-ray does not show acute abnormality per radiology interpretation my review Will treat for intercostal strain HPI General Date/Time Provider Initiated Documentation: 07/21/21 09:12 . HPI Narrative: This 36-year-old male presents with report of right chest wall pain which started on Monday. He denies known injury to the affected area but states it is very tender with any sort of palpation, lifting his right arm, twisting, and deep bleeding. He denies any shortness of breath. He did not fever this morning reportedly. His daughter was sick with a respiratory symptoms this weekend. Patient denies any cough or any persistent symptoms. He denies fever today. He is otherwise healthy. He denies any associated shortness of breath or nausea. He denies any left-sided pain. He denies any calf pain or swelling. He denies recent flights, surgeries, long drives a history of coagulopathy. Related Data Home Medications Medication Instructions Recorded Confirmed cyclobenzaprine 10 mg tablet 10 mg PO TID PRN #10 tabs 07/21/21 Previous Rx's Medication Instructions Recorded cyclobenzaprine 10 mg tablet 10 mg PO TID PRN #10 tabs 07/21/21 Allergies Allergy/AdvReac Type Severity Reaction Status Date / Time bee venom protein (honey bee) Allergy Mild Skin Rash Unverified 07/21/21 09:09 hydrocodone [From Vicodin] AdvReac Intermediate Unverified 07/21/21 09:09 oxycodone [From Percocet] AdvReac Intermediate Unverified 07/21/21 09:09 General Stated Complaint: Chest/Rib FABI: 4 Review of Systems All systems reviewed & are unremarkable except as noted in HPI and below PFSH All Active Problems (Updated 07/21/21 @ 10:02 by JIMBO Enrique) Pain due to dental caries (Acute) Left shoulder pain (Acute) Acute chest wall pain (Acute) Intercostal muscle strain (Acute) Social History Smoking/Tobacco Use Status: Current every day Tobacco Type: cigarettes Smoking risk assessment performed?: Yes Alcohol Intake: never Drug use: Daily Substance use type: marijuana Do you feel safe at home: Yes Do you feel safe in your relationship?: Yes Exam Const General: cooperative, comfortable and no acute distress Orientation: alert and oriented x3 Chest Other: Reproducible right mid axillary tenderness without crepitus, no rashes or lesions Chest/axillae images: 1. Tenderness to palpation No rashes or lesions Resp Effort & Inspection: normal respiratory effort Auscultation: clear to auscultation bilaterally Other: Lungs clear to auscultation, no respiratory distress Cardio Rate: regular rate Rhythm: regular rhythm Skin General skin exam: no rashes or lesions noted Neuro General: patient alert and patient oriented x3 Extrem Other: No calf swelling or tenderness Distal pulses intact Course Vital Signs Vital signs: Vital Signs Temperature 36.8 C 07/21/21 09:06 Pulse 85 07/21/21 09:06 Respiratory Rate 16 07/21/21 09:06 Blood Pressure 118/75 07/21/21 09:06 Pulse Oximetry 98 07/21/21 09:06 Temperature 36.8 C 07/21/21 09:06 Temperature Source Temporal Artery Scan 07/21/21 09:06 Pulse 85 07/21/21 09:06 Respiratory Rate 16 07/21/21 09:06 Respiratory Effort 07/21/21 09:10 Respiratory Depth Normal 07/21/21 09:10 Respiratory Pattern Normal 07/21/21 09:10 Blood Pressure 118/75 07/21/21 09:06 Blood Pressure Position Sitting 07/21/21 09:06 Pulse Oximetry 98 07/21/21 09:06 Oxygen Delivery Method Room Air 07/21/21 09:06 Oxygen Flow Rate 0 07/21/21 09:06 Pain Level 4 07/21/21 09:10
== END 2021-07-21 10:15 | disposition home or self-care (01) ==
PROVIDERS: Emergency Provider Physician Assistant
DX: S29.011A Strain of muscle and tendon of front wall of thorax, initial encounter (principal); X58.XXXA Exposure to other specified factors, initial encounter
CPT/HCPCS: 99284; 71046; 71100; 99283

== ENCOUNTER 2021-12-31 09:55 | Emergency (ER) | payer SELFPAY ==
[2021-12-31 09:59] VITALS: BP 122/75; PULSE 80; RESP 16; TEMP 36.8; O2SAT 98
--- NOTE | 2021-12-31 10:56 | W.ED.GENAD ---
Discharge Plan Disposition Patient Disposition: Home Condition: Stable Discharge Details Clinical Impression: Cephalgia Primary Care Provider: None,None ED Provider: Luis Null Home Meds and New Rx's Prescriptions: Continued naproxen sodium 220 mg Tablet 220 mg PO PRN PRN Label Comments: usually only takes once per week Discharge Instructions Instructions: General Headache (ED) Additional Instructions: COVID test is negative. Please watch for new or worsening symptoms and return to the ER for any concerns. Otherwise please follow-up with your PCP if symptoms are to persist. Stand Alone Forms: Work Release Medical Decision Making 36-year-old gentleman who reports a daily headache 2/10, today is a 3/10, positive COVID exposure last week, his employer today sent to the ER for COVID test. He is otherwise asymptomatic. He appears well, nontoxic, hemodynamically stable. Lungs clear to auscultation, afebrile, O2 sat 98% on room air. We will perform a POC COVID and flu. No clear indication for additional laboratory values or chest x-ray COVID and flu negative. Send out COVID sent for testing Standard discharge and return precautions were provided. Patient understands, is agreeable to this plan, and has no additional questions or concerns upon discharge. This documentation was generated using tinyclues dictation system, please disregard any oddities of phrase or misspellings. Medical Records Medical records reviewed: Yes I reviewed the patient's medical records. Lab Data Lab results reviewed: Yes I reviewed the patient's lab results. Labs: POC flu and COVID-negative Sign Out No HPI General Mode of arrival: ambulatory. Date/Time Provider Initiated Documentation: 12/31/21 10:27. Limitations to Documentation: no limitations. Information obtained by: patient. HPI Narrative: This is a 36-year-old gentleman who denies significant past medical history reports that he typically has a headache every day 2 out of 10, chronic cough secondary to smoking, went to work today and reported he had a 3 out of 10 headache, positive COVID exposure last week, employer sent to the ER for COVID testing. Patient reports otherwise he feels well. He denies fever, change of his cough, shortness of breath, chest pain abdominal pain, nausea or vomiting. He has not taken any rtkx-alm-mtoaqco medications for his symptoms. Related Data Home Medications Medication Instructions Recorded Confirmed naproxen sodium 220 mg tablet 220 mg PO PRN PRN 12/31/21 12/31/21 Allergies Allergy/AdvReac Type Severity Reaction Status Date / Time bee venom protein (honey bee) Allergy Mild Skin Rash Unverified 12/31/21 10:05 hydrocodone [From Vicodin] AdvReac Intermediate Unverified 12/31/21 10:05 oxycodone [From Percocet] AdvReac Intermediate Unverified 12/31/21 10:05 General Stated Complaint: Headache FABI: 4 Review of Systems Constitutional Constitutional: Denies fever(s) ENT Ears, Nose, Mouth, and Throat: Denies sore throat Cardiovascular Cardiovascular: Denies chest pain and Denies dyspnea Respiratory Respiratory: Reports cough and Denies dyspnea Gastrointestinal Gastrointestinal: Denies abdominal pain, Denies nausea and Denies vomiting Musculoskeletal Musculoskeletal: Denies myalgias Integumentary/Breasts Skin/Breast: Denies rash PFSH All Active Problems (Updated 12/31/21 @ 10:59 by JIMBO Zhao) Pain due to dental caries (Acute) Left shoulder pain (Acute) Cephalgia (Acute) Social History Smoking/Tobacco Use Status: Current every day Tobacco Type: cigarettes Smoking risk assessment performed?: Yes Alcohol Intake: never Drug use: Daily Substance use type: marijuana Do you feel safe at home: Yes Do you feel safe in your relationship?: Yes Exam Const General: cooperative, healthy appearing, comfortable and no acute distress Orientation: alert and awake HENAR Head: normal to inspection, normocephalic and atraumatic Face and sinus: normal facial exam Mouth: moist mucous membranes Throat: posterior oropharynx normal Eyes General: appearance normal, both eyes and all related structures Conjunctivae: conjunctivae normal Neck Neck: normal visual inspection, full ROM, no meningeal signs, trachea midline and supple Resp Effort & Inspection: normal respiratory effort and able to speak in complete sentences Auscultation: clear to auscultation bilaterally Cardio Rate: regular rate Rhythm: regular rhythm Skin General skin exam: no rashes or lesions noted Neuro General: patient alert, patient awake, moves all extremities and no focal motor deficits Sensory Exam: no sensory deficits noted Psych Appearance: grossly normal Mental Status: mental status grossly normal Course Vital Signs Vital signs: Vital Signs Temperature 36.8 C 12/31/21 09:59 Pulse 80 12/31/21 09:59 Respiratory Rate 16 12/31/21 09:59 Blood Pressure 122/75 12/31/21 09:59 Pulse Oximetry 98 12/31/21 09:59 Temperature 36.8 C 12/31/21 09:59 Temperature Source Skin 12/31/21 09:59 Pulse 80 12/31/21 09:59 Respiratory Rate 16 12/31/21 09:59 Blood Pressure 122/75 12/31/21 09:59 Blood Pressure Position Sitting 12/31/21 09:59 Pulse Oximetry 98 12/31/21 09:59 Oxygen Delivery Method Room Air 12/31/21 09:59 Oxygen Flow Rate 0 12/31/21 09:59 Pain Level 3 12/31/21 10:08 Comment 12/31/21 09:59
== END 2021-12-31 11:08 | disposition home or self-care (01) ==
PROVIDERS: Emergency Provider Physician Assistant
DX: R51.9 Headache, unspecified (principal); Z20.822 Contact with and (suspected) exposure to COVID-19; R05.3 Chronic cough; F17.210 Nicotine dependence, cigarettes, uncomplicated
CPT/HCPCS: 99282; U0003

== ENCOUNTER 2022-02-04 15:33 | Emergency (ER) | payer SELFPAY ==
[2022-02-04 15:36] VITALS: BP 125/71; PULSE 90; RESP 18; TEMP 37.6; O2SAT 97
--- NOTE | 2022-02-04 16:03 | ED.GENADUL_ITS ---
Discharge Plan Disposition Patient Disposition: Home Condition: Improving Discharge Details Clinical Impression: Acute viral syndrome Primary Care Provider: None,None ED Provider: Dakotah Zhang Home Meds and New Rx's Prescriptions: New ondansetron HCl 4 mg tablet 4 mg PO TID 5 Days Qty: 15 0RF Continued naproxen sodium 220 mg Tablet 220 mg PO PRN PRN Label Comments: usually only takes once per week Discharge Instructions Instructions: Viral Syndrome (ED) Additional Instructions: Home to rest this evening. Small, frequent sips of fluids to maintain hydration. See enclosed work note. May use the provided Zofran as needed for nausea. Return to the ER for any acute concerns. Your COVID and influenza test were negative this evening. Stand Alone Forms: Work Release Medical Decision Making 36-year-old male presents from work with a report of 2 to 3 days of nausea, vomiting, loose and watery stool. Reports stomach cramps as well, and a mild headache. He is well-appearing, normal vital signs. His work puts him at risk for flu and COVID exposure. Patient given Zofran and ibuprofen, referred for [id number] influenza and COVID test. Viral swabs are negative. Patient improving with oral medications. Will offer Zofran for home. He may have a work note. He is stable and appropriate for discharge. HPI General Mode of arrival: ambulatory . Date/Time Provider Initiated Documentation: 02/04/22 15:50 . Limitations to Documentation: no limitations . Information obtained by: patient . History of Present Illness 36 year old M presents to the emergency department with the chief complaint of Nausea, stomach cramps, headache, described as mild and moderate, and is localized to the head and abdomen. Patient reports no radiation. Patient started experiencing this day(s) and it has been intermittent. No relieving factors improve symptom(s), No exacerbating factors reported . Patient notes fever/chills, headaches and loss of appetite; denies cough, nausea/vomiting, rash, shortness of breath and syncope. Patient did receive the following treatments prior to arrival, none Related Data Home Medications Medication Instructions Recorded Confirmed naproxen sodium 220 mg tablet 220 mg PO PRN PRN 12/31/21 12/31/21 ondansetron HCl 4 mg tablet 4 mg PO TID 5 days #15 tabs 02/04/22 Previous Rx's Medication Instructions Recorded ondansetron HCl 4 mg tablet 4 mg PO TID 5 days #15 tabs 02/04/22 Allergies Allergy/AdvReac Type Severity Reaction Status Date / Time bee venom protein (honey bee) Allergy Mild Skin Rash Unverified 12/31/21 10:05 hydrocodone [From Vicodin] AdvReac Intermediate Unverified 12/31/21 10:05 oxycodone [From Percocet] AdvReac Intermediate Unverified 12/31/21 10:05 General Stated Complaint: Nausea/Vomit/Diar FABI: 3 Review of Systems Narrative: 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 8 systems were reviewed. PFSH All Active Problems (Updated 02/04/22 @ 16:35 by Dakotah Zhang MD) Pain due to dental caries (Acute) Left shoulder pain (Acute) Acute viral syndrome (Acute) Social History Smoking/Tobacco Use Status: Current every day Tobacco Type: cigarettes Smoking risk assessment performed?: Yes Alcohol Intake: never Drug use: Daily Substance use type: marijuana Do you feel safe at home: Yes Do you feel safe in your relationship?: Yes Exam Narrative Exam Narrative: GEN: awake, alert, oriented 3. Pleasant, well groomed, interactive. HEAD: Normocephalic, atraumatic ENT: Mucous membranes moist, oropharynx erythematous, External ear exam unremarkable EYES: PERRL, EOMI NECK: Full ROM, no ANA MARIA, no menigismus CHEST/RESP: Nontender, clear to auscultation bilateral, no wheeze/rhonchi/rales CARDIOVASCULAR: RRR, no murmur, rub khanh. 2+ Rad pulse bilateral ABDOMEN: Soft, nontender, no mass. +Bowel sounds EXT: Full ROM, no edema, no rash Neuro: Grossly normal neurologic exam, conversant, interactive. Psych: Speech fluent, thoughts congruent, affect normal Course Vital Signs Vital signs: Vital Signs Temperature 37.6 C 02/04/22 15:36 Pulse 90 02/04/22 15:36 Respiratory Rate 18 02/04/22 15:36 Blood Pressure 125/71 02/04/22 15:36 Pulse Oximetry 97 02/04/22 15:36 Temperature 37.6 C 02/04/22 15:36 Temperature Source Tympanic 02/04/22 15:36 Pulse 90 02/04/22 15:36 Respiratory Rate 18 02/04/22 15:36 Respiratory Effort 02/04/22 15:38 Blood Pressure 125/71 02/04/22 15:36 Blood Pressure Position Supine 02/04/22 15:36 Pulse Oximetry 97 02/04/22 15:36 Oxygen Delivery Method Room Air 02/04/22 15:36 Oxygen Flow Rate 0 02/04/22 15:36 Pain Level 5 02/04/22 15:36
== END 2022-02-04 17:53 | disposition home or self-care (01) ==
PROVIDERS: Emergency Provider Emergency Medicine
DX: B34.9 Viral infection, unspecified (principal); R11.2 Nausea with vomiting, unspecified; R19.7 Diarrhea, unspecified
CPT/HCPCS: 99283

== ENCOUNTER 2022-02-25 14:11 | Emergency (ER) | payer SELFPAY ==
[2022-02-25 14:14] VITALS: BP 127/79; PULSE 98; RESP 16; TEMP 36.7; O2SAT 96
[2022-02-25 14:36] LABS: Bilirubin Small (Negative); Blood Negative (Negative); Clarity Clear (Clear); Glucose Negative (Negative); Ketones Trace mg/dL (Negative); Leukocyte Esterase Negative (Negative); Nitrite Negative (Negative); Specific Gravity >= 1.030 (1.005-1.025); Urobilinogen 0.2 EU/dL (Up TO 0.2); pH 5.5 (5-8)
--- NOTE | 2022-02-25 14:45 | DI.CT_ITS ---
Exam(s) CT ABDOMEN PELVIS WO EXAM: CT ABDOMEN PELVIS WO CLINICAL HISTORY: Mid back pain, Fever, R/O Kidney stone. TECHNIQUE: Imaging Protocol: Axial computed tomography images with coronal and sagittal reformatted images were created and reviewed. COMPARISON: No exams were available for comparison FINDINGS: ABDOMEN: Lung Bases: Normal where visualized. Liver: Normal density. No measurable mass. Gallbladder and biliary tract: No radiodense calculus or biliary ductal dilation. Pancreas: Normal density, no abnormal calcifications or inflammatory process. Spleen: Normal. Kidneys: Normal size, contour and axis.No radiodense stones or obstructive uropathy. No masses seen. Adrenal glands: No mass is seen. Lymph nodes: Within normal limits. Abdominal Aorta: Abdominal portion non-dilated. Atherosclerosis is present. PELVIS: Bladder:Symmetric distention, no gross wall thickening. Bowel: There is diverticulosis of the colon but no evidence of acute diverticulitis. No evidence of bowel obstruction. Appendix is unremarkable. Peritoneal cavity: No ascites, collection or mesenteric inflammatory response. No free air. Reproductive organs: Unremarkable as visualized. Bones: Within normal limits. Soft Tissues: Within normal limits. IMPRESSION: 1. No acute abdominal or pelvic process. 2. Findings were discussed with Luis Null at 4:10 p.m. on 02/25/2022. RADIATION DOSE DELIVERED: 823.43mGy.cm Total DLP DATA REPOSITORY: All CT scans at this facility are submitted to the National Radiology Data Registry (NRDR) Dose Index Registry (DIR) with the [employer] (ACR). RADIATION OPTIMIZATION: All CT scans at this facility use at least one of these dose optimization te chniques: automated exposure control; mA and/or kV adjustment per patient size (includes targeted exa ms where dose is matched to clinical indication); or iterative reconstruction.
--- NOTE | 2022-02-25 14:52 | ED.GENADUL_ITS ---
Discharge Plan Disposition Patient Disposition: Home Condition: Improving Discharge Details Clinical Impression: Back pain, Leukocytosis Primary Care Provider: None,None ED Provider: Luis Null Home Meds and New Rx's Prescriptions: New cyclobenzaprine 10 mg tablet 10 mg PO TID PRNQty: 10 0RF Continued naproxen sodium 220 mg Tablet 220 mg PO PRN PRN Label Comments: usually only takes once per week Discharge Instructions Instructions: Back Pain (ED), Leukocytosis (ED) Additional Instructions: Work-up in the ER does not reveal any obvious emergent process. Please take Flexeril as directed, this medication may cause drowsiness. Gentle stretching as tolerated. Cool and/or warm compresses every 2 hours for 20 minutes. Lxig-sxv-[id number] medications such as Tylenol, Motrin, Lidoderm patches, etc. as directed for symptomatic control. Please watch for new or worsening symptoms a nd return to the ER for any concerns. Lastly, please contact your primary care provider to discuss your ER visit, ongoing symptoms, and need for outpatient reevaluation. Stand Alone Forms: Work Release Medical Decision Making <Nina Briseno NP - Last Filed: 02/25/22 15:39> 36-year-old male presents to the ER with chief complaint of mid back pain which began acutely prior to arrival. Reports that it began this morning. He did not take any Tylenol or ibuprofen prior to arrival. He denies any injury. He also notes that he had a fever yesterday which went away. He does endorse some generalized abdominal pain which he was seen for he reports beginning of the month. He does endorse marijuana use denies any other illicit drugs or alcohol. He does have a full body papular rash with some excoriations which he reports that he recently got rid of some bedbugs. CBC CMP urinalysis, IV liter normal saline Toradol and Zofran ordered. CT abdomen pelvis without contrast ordered rule out kidney stone. UA shows trace ketones small bilirubin negative for blood no leukocytes nitrites no evidence of UTI. Differential diagnosis includes musculoskeletal pain, kidney stone, UTI, other infection. Care is to be handed off to oncoming provider Luis Null pending CT results. Expected disposition discharged with possible muscle relaxer pending CT. This text was generated using [employer] system, please disregard any oddities of phrase or misspellings. Lab Data Lab results reviewed: Yes I reviewed the patient's lab results. Labs: Laboratory Tests Range/Units 02/25/22 02/25/22 02/25/22 14:20 14:55 14:55 WBC (4.4-10.8) 10^3/uL 15.50 H RBC (4.36-5.78) 10^6/uL 5.55 Hgb (13.5-17.5) g/dL 16.6 Hct (40.0-50.0) % 49.1 MCV (80-95) fL 89 MCH (27.0-33.0) pg 29.9 MCHC (32.0-36.0) % 33.8 RDW (11.8-14.1) % 12.2 Plt Count (130-400) 10^3/uL 336 MPV (8.0-11.0) fL 9.3 Immature Gran % 0.3 Neutrophils % 78.2 Lymphocytes % 13.1 Monocytes % 6.5 Eosinophils % 1.4 Basophils % 0.5 Nucleated RBC % (0.0-0.3) % 0.0 Absolute Neutrophils (1.2-6.7) 10^3/uL 12.12 H Absolute Lymphocytes (1.2-3.4) 10^3/uL 2.03 Absolute Monocytes (0.1-0.8) 10^3/uL 1.01 H Absolute Eosinophils (0.0-0.7) 10^3/uL 0.22 Absolute Basophils (0.0-0.2) 10^3/uL 0.08 Sodium (136-145) mmol/L 139 Potassium (3.5-5.1) mmol/L 4.4 Chloride (98-107) mmol/L 100 Carbon Dioxide (21.0-32.0) mmol/L 29.2 Anion Gap (3-11) mmol/L 9.8 BUN (7-18) mg/dL 18 Creatinine (0.70-1.30) mg/dL 1.3 Est GFR (CKD-EPI 2020) (mL/min/1.73m2) 73.93 Glucose (74-106) mg/dL 94 Calcium (8.5-10.1) mg/dL 9.7 Total Bilirubin (0.2-1.0) mg/dL 0.5 AST (15-37) U/L 20 ALT (16-63) U/L 27 Alkaline Phosphatase (46-116) U/L 93 Total Protein (6.4-8.2) g/dL 8.6 H Albumin (3.4-5.0) g/dL 4.4 Urine Color (Yellow) Yellow Urine Clarity (Clear) Clear Urine pH (5-8) 5.5 Ur Specific [place] (1.005-1.025) >= 1.030 H Urine Protein (Negative) mg/dL Negative Urine Ketones (Negative) mg/dL Trace H Urine Blood (Negative) Negative Urine Nitrite (Negative) Negative Urine Bilirubin (Negative) Small H Urine Urobilinogen (Up TO 0.2) EU/dL 0.2 Ur Leukocyte Esterase (Negative) Negative Urine Glucose (Negative) mg/dL Negative <JIMBO Zhao - Last Filed: 02/25/22 16:54> 36-year-old male presents to the ER with chief complaint of mid back pain which began acutely prior to arrival. Reports that it began this morning. He did not take any Tylenol or ibuprofen prior to arrival. He denies any injury. He also notes that he had a fever yesterday which went away. He does endorse some generalized abdominal pain which he was seen for he reports beginning of the month. He does endorse marijuana use denies any other illicit drugs or alcohol. He does have a full body papular rash with some excoriations which he reports that he recently got rid of some bedbugs. CBC CMP urinalysis, IV liter normal saline Toradol and Zofran ordered. CT abdomen pelvis without contrast ordered rule out kidney stone. UA shows trace ketones small bilirubin negative for blood no leukocytes nitrites no evidence of UTI. Differential diagnosis includes musculoskeletal pain, kidney stone, UTI, other infection. Care is to be handed off to oncoming provider Luis Null pending CT results. Expected disposition discharged with possible muscle relaxer pending CT. This text was generated using [employer] dictation system, please disregard any oddities of phrase or misspellings. 1530: Luis Null PA-C I assumed care of this 36-year-old gentleman from my colleague NIKA Briseno, please see her initial HPI and examination. Laboratory values have revealed non specific leukocytosis of 15.50. The only other labs we have for comparison also revealed leukocytosis back in 2019. Laboratory values are otherwise grossly unremarkable. Awaiting CT imaging. Upon evaluation patient is resting comfortably. He reports that overall he is feeling improvement with the medications, denies any nausea whatsoever but does report right-sided back pain, better with rest, worse with movement. He does have reproducible right-sided paravertebral lower thoracic and upper lumbar discomfort, there is no erythema, warmth, midline point tenderness. He denies any IV drug use, change in bowel or bladder function. CT imaging is unremarkable for acute abdominal or pelvic process. Discussed work-up with patient. Patient feels overall improvement and is comfortable discharge. He is agreeable to trialing a muscle relaxer and he will continue [id number] medication such as Tylenol and/or Motrin. I will provide a work note for today and tomorrow. Standard discharge and return precautions were provided. Patient understands, is agreeable to this plan, and has no additional questions or concerns upon discharge. This documentation was generated using [employer] system, please disregard any oddities of phrase or misspellings. Medical Records Medical records reviewed: Yes I reviewed the patient's medical records. Imaging Data Radiologic Study: Attestation: I personally reviewed and interpreted this imaging study as follows: Imaging: CT Scan Radiologist's impression: COMPARISON: No exams were available for comparison FINDINGS: ABDOMEN: Lung Bases: Normal where visualized. Liver: Normal density. No measurable mass. Gallbladder and biliary tract: No radiodense calculus or biliary ductal dilation. Pancreas: Normal density, no abnormal calcifications or inflammatory process. Spleen: Normal. Kidneys: Normal size, contour and axis.No radiodense stones or obstructive uropathy. No masses seen. Adrenal glands: No mass is seen. Lymph nodes: Within normal limits. Abdominal Aorta: Abdominal portion non-dilated. Atherosclerosis is present. PELVIS: Bladder:Symmetric distention, no gross wall thickening. Bowel: There is diverticulosis of the colon but no evidence of acute diverticulitis. No evidence of bowel obstruction. Appendix is unremarkable. Peritoneal cavity: No ascites, collection or mesenteric inflammatory response. No free air. Reproductive organs: Unremarkable as visualized. Bones: Within normal limits. Soft Tissues: Within normal limits. IMPRESSION: 1. No acute abdominal or pelvic process. 2. Findings were discussed with Luis Null at 4:10 p.m. on 02/25/2022. HPI <Nina Briseno NP - Last Filed: 02/25/22 15:39> General Mode of arrival: ambulatory . Date/Time Provider Initiated Documentation: 02/25/22 14:31 . Limitations to Documentation: no limitations . Information obtained by: patient, RN notes reviewed and old records reviewed . HPI Narrative: 36-year-old male presents to the ER with chief complaint of mid back pain which began acutely prior to arrival. Reports that it began this morning. He did not take any Tylenol or ibuprofen prior to arrival. He denies any injury. He also notes that he had a fever yesterday which went away. He does endorse some generalized abdominal pain which he was seen for he reports beginning of the month. He does endorse marijuana use denies any other illicit drugs or alcohol. He does have a full body papular rash with some excoriations which he reports that he recently got rid of some bedbugs. Related Data Home Medications Medication Instructions Recorded Confirmed naproxen sodium 220 mg tablet 220 mg PO PRN PRN 12/31/21 12/31/21 cyclobenzaprine 10 mg tablet 10 mg PO TID PRN #10 tabs 02/25/22 Previous Rx's Medication Instructions Recorded cyclobenzaprine 10 mg tablet 10 mg PO TID PRN #10 tabs 02/25/22 Allergies Allergy/AdvReac Type Severity Reaction Status Date / Time bee venom protein (honey bee) Allergy Mild Skin Rash Unverified 02/25/22 16:05 hydrocodone [From Vicodin] AdvReac Intermediate Unverified 02/25/22 16:05 oxycodone [From Percocet] AdvReac Intermediate Unverified 02/25/22 16:05 General Stated Complaint: Nk/Back Pain FABI: 3 Review of Systems <Nina Briseno NP - Last Filed: 02/25/22 15:39> All systems reviewed & are unremarkable except as noted in HPI and below ENT Ears, Nose, Mouth, and Throat: Denies neck pain Genitourinary Genitourinary: Reports as per HPI, Denies difficulty urinating, Reports flank pain and Denies testicular pain Musculoskeletal Musculoskeletal: Reports as per HPI, Reports back pain, Denies loss of height, Denies neck pain and Reports stiffness Integumentary/Breasts Skin/Breast: Reports as per HPI and Reports rash PFSH <Nina Briseno NP - Last Filed: 02/25/22 15:39> All Active Problems (Updated 02/25/22 @ 16:53 by JIMBO Zhao) Pain due to dental caries (Acute) Left shoulder pain (Acute) Acute viral syndrome (Acute) Back pain (Acute) Leukocytosis (Acute) Social History Smoking/Tobacco Use Status: Current every day Tobacco Type: cigarettes Smoking risk assessment performed?: Yes Alcohol Intake: never Drug use: Daily Substance use type: marijuana Do you feel safe at home: Yes Do you feel safe in your relationship?: Yes Exam <Nina Briseno NP - Last Filed: 02/25/22 15:39> Narrative Exam Narrative: Constitutional: Alert and oriented x3. Appears stated age. Normal body habitus. Patient appears nontoxic. Head: Normocephalic, no trauma. Eyes: Pupils PERRL, Red reflex noted, EOM's intact. Eyelids symmetrical without lesions, discharge, or swelling. ENT: External ear normal to inspection, no mastoid TTP, swelling, or erythema. Chest: RRR, Normal S1, S2, distal pulses intact. Resp: Lungs clear to auscultation bilaterally, no wheezes, rales, or rhonchi. Abdomen: Soft, non-distended, Normoactive bowel sounds all 4 quads. Nontender to palpation all 4 quadrants. : Right CVA tenderness, Musculoskeletal: Normal gait, 5/5 strength to all four extremities. Right paraspinous tenderness with palpation. Skin: Dry largely distributed maculopapular rash noted full body, with excoriations appears chronic. No surrounding induration or signs of infection. Capillary refill less than 2 sec. Neurologic: Cranial nerves II-XII intact. Alert and oriented x 3. Motor: No deficits noted. Sensory: Intact bilaterally all 4 extremities. Reflexes: DTR's intact bilaterally.. Hematologic/Lymphatic: No ecchymosis, no lymphadenopathy. Course <Nina Briseno NP - Last Filed: 02/25/22 15:39> Vital Signs Vital signs: Vital Signs Temperature 36.7 C 02/25/22 14:14 Pulse 98 H 02/25/22 14:14 Respiratory Rate 16 02/25/22 14:14 Blood Pressure 127/79 02/25/22 14:14 Pulse Oximetry 96 02/25/22 14:14 Temperature 36.7 C 02/25/22 14:14 Pulse 98 H 02/25/22 14:14 Respiratory Rate 16 02/25/22 14:14 Blood Pressure 127/79 02/25/22 14:14 Pulse Oximetry 96 02/25/22 14:14 Oxygen Delivery Method Room Air 02/25/22 14:14 Oxygen Flow Rate 0 02/25/22 14:14 Pain Level 8 02/25/22 14:14 Lab/Test Results Lab/Test Results: Laboratory Tests Range/Units 02/25/22 14:20 Urine Color (Yellow) Yellow Urine Clarity (Clear) Clear Urine pH (5-8) 5.5 Ur Specific [place] (1.005-1.025) >= 1.030 H Urine Protein (Negative) mg/dL Negative Urine Ketones (Negative) mg/dL Trace H Urine Blood (Negative) Negative Urine Nitrite (Negative) Negative Urine Bilirubin (Negative) Small H Urine Urobilinogen (Up TO 0.2) EU/dL 0.2 Ur Leukocyte Esterase (Negative) Negative Urine Glucose (Negative) mg/dL Negative Sign Out <Nina Briseno NP - Last Filed: 02/25/22 15:39> Sign Out Data: Sign Out Comment: 36-year-old male back pain, right CVA tenderness, fever yesterday, pending CT abdomen pelvis. No known injury denies neuro symptoms. Given Toradol and Zofran. Last updated by Nina Briseno NP at 02/25/22 15:37
[2022-02-25 15:02] LABS: Abs Immature Grans 0.05 10^3/uL (0.0-0.06); Absolute Eosinophil Count 0.22 10^3/uL (0.0-0.7); Absolute Lymphocyte Count 2.03 10^3/uL (1.2-3.4); Basophils % 0.5; Eosinophils % 1.4; HCT 49.1 % (40.0-50.0); HGB 16.6 g/dL (13.5-17.5); Immature Grans % 0.3; Lymphocytes % 13.1; MCH 29.9 pg (27.0-33.0); MCHC 33.8 % (32.0-36.0); MCV 89 fL (80-95); MPV 9.3 fL (8.0-11.0); Monocytes % 6.5; Neutrophils % 78.2; Platelet Count 336 10^3/uL (130-400); RBC 5.55 10^6/uL (4.36-5.78); RDW 12.2 % (11.8-14.1)
[2022-02-25 15:03] LABS: Absolute Basophil Count 0.08 10^3/uL (0.0-0.2); Absolute Monocyte Count 1.01 10^3/uL (0.1-0.8); Absolute Neutrophil Count 12.12 10^3/uL (1.2-6.7)
[2022-02-25] MEDS: Ondansetron 4 MG/2 ML VIAL IVP (15:04)
[2022-02-25] MEDS: Ketorolac 15 MG/ML VIAL IVP (15:06)
[2022-02-25] MEDS: Normal Saline 1,000 ML 1000 ML IV (15:07)
[2022-02-25 15:22] LABS: ALT 27 U/L (16-63); AST 20 U/L (15-37); Albumin 4.4 g/dL (3.4-5.0); Alkaline Phosphatase 93 U/L (46-116); Anion Gap 9.8 mmol/L (3-11); BUN 18 mg/dL (7-18); Bilirubin, Total 0.5 mg/dL (0.2-1.0); CO2 29.2 mmol/L (21.0-32.0); CREATININE 1.3 mg/dL (0.70-1.30); Calcium 9.7 mg/dL (8.5-10.1); Chloride 100 mmol/L (98-107); Estimated GFR 73.93 (mL/min/1.73m2); Glucose 94 mg/dL (74-106); Potassium 4.4 mmol/L (3.5-5.1); Sodium 139 mmol/L (136-145); Total Protein 8.6 g/dL (6.4-8.2)
[2022-02-25 17:09] VITALS: BP 118/72; PULSE 72; RESP 18; O2SAT 97
== END 2022-02-25 17:11 | disposition home or self-care (01) ==
PROVIDERS: Registered Nurse Emergency; Emergency Provider Physician Assistant
DX: M54.9 Dorsalgia, unspecified (principal); D72.829 Elevated white blood cell count, unspecified; R21 Rash and other nonspecific skin eruption
CPT/HCPCS: 80053; 96361; 96374; 96375; 99284; 74176; 81003; 85025; J1885; J2405

== ENCOUNTER 2022-06-15 14:02 | Emergency (ER) | payer SELFPAY ==
[2022-06-15 14:15] VITALS: BP 124/68; PULSE 77; RESP 18; TEMP 37; O2SAT 98
--- NOTE | 2022-06-15 14:15 | DI.RAD_ITS ---
Exam(s) XR WRIST RT COMPLETE EXAM: XR WRIST RT COMPLETE CLINICAL HISTORY: pain 2 days. TECHNIQUE: 2D digital imaging was performed. Three views. COMPARISON: No exams were available for comparison FINDINGS: BONES: No acute fracture is present. No bony destructive lesion is seen. JOINTS: The carpal bones are normally aligned. SOFT TISSUE: Normal. IMPRESSION: Unremarkable radiographs of the right wrist. DATA REPOSITORY: RADIATION DOSE DELIVERED:
--- NOTE | 2022-06-15 14:22 | ED.GENADUL_ITS ---
Discharge Plan Disposition Patient Disposition: Home Condition: Stable Discharge Details Clinical Impression: Right wrist sprain Primary Care Provider: None,None ED Provider: Obie Tomas Home Meds and New Rx's Prescriptions: Continued naproxen sodium 220 mg Tablet 220 mg PO PRN PRN Patient Comments: usually only takes once per week Discontinued cyclobenzaprine 10 mg tablet 10 mg PO TID PRNQty: 10 0RF Patient Comments: not taking Discharge Instructions Instructions: Wrist Sprain (ED) Additional Instructions: your xray did not show concerning findings if pain continues in a week follow up with your primary care provider if you feel more ill, have severe worsening pain or fevers return to the emergency department Medical Decision Making 37 yo male with no chronic medical problems comes in with right wrist pain for 2 days. He states he was lowering himself onto his bed Monday and put his right arm down and since has had pain over the medial portion of the wrist. Denies swelling warmth, redness. He arrives stable, appears well in no distress. He localizes the pain to the radial side of the wrist. He has full rom of the wrist. No swelling or warmth. HAS intact sensation and pulses. full rom of the fingers. No pain in the forearm or elbow, no snuffbox tenderness. 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 Will place in splint for comfort, advised to f/u with pcp if pain continues next week and return precautions given Differential Diagnosis Differential Diagnosis: fracture, tendonitis, strain Imaging Data Radiologic Study: Attestation: I personally reviewed and interpreted this imaging study as follows: Imaging: X-Ray My impression: no acute findings HPI General Mode of arrival: ambulatory . Date/Time Provider Initiated Documentation: 06/15/22 14:18 . Limitations to Documentation: no limitations . Information obtained by: patient . History of Present Illness 37 year old M presents to the emergency department with the chief complaint of right wrist pain, described as moderate, Patient started experiencing this day(s) (2) and it has been constant. Rest improves symptom(s), Movement worsens symptoms . Patient notes no other symptoms.. Patient did receive the following treatments prior to arrival, none Related Data Home Medications Medication Instructions Recorded Confirmed naproxen sodium 220 mg tablet 220 mg PO PRN PRN 12/31/21 06/15/22 Allergies Allergy/AdvReac Type Severity Reaction Status Date / Time bee venom protein (honey bee) Allergy Mild Skin Rash Unverified 06/15/22 14:17 hydrocodone [From Vicodin] AdvReac Intermediate Unverified 06/15/22 14:17 oxycodone [From Percocet] AdvReac Intermediate Unverified 06/15/22 14:17 General Stated Complaint: Orthopedic FABI: 4 Review of Systems All systems reviewed & are unremarkable except as noted in HPI and below Constitutional Constitutional: Denies chills, Denies fever(s) and Denies weakness Cardiovascular Cardiovascular: Denies chest pain and Denies dyspnea Respiratory Respiratory: Denies cough and Denies dyspnea Gastrointestinal Gastrointestinal: Denies abdominal pain, Denies nausea and Denies vomiting Musculoskeletal Musculoskeletal: Denies joint swelling Neurologic Neurologic: Denies weakness PFSH All Active Problems (Updated 06/15/22 @ 14:49 by Obie Tomas MD) Pain due to dental caries (Acute) Left shoulder pain (Acute) Right wrist sprain (Acute) Social History Smoking/Tobacco Use Status: Current every day Tobacco Type: cigarettes Smoking risk assessment performed?: Yes Alcohol Intake: never Drug use: Occasionally Substance use type: marijuana Do you feel safe at home: Yes Do you feel safe in your relationship?: Yes Exam Const General: no acute distress Orientation: alert HENMT Head: normal to inspection Ears: external ears normal General nose exam: external nose normal Mouth: moist mucous membranes Eyes General: appearance normal, both eyes and all related structures Neck Neck: normal visual inspection Resp Effort & Inspection: normal respiratory effort and able to speak in complete sentences Cardio Rate: regular rate Skin General skin exam: no rashes or lesions noted Neuro General: patient alert and patient oriented x3 Extrem General: normal to inspection, full ROM and capillary refill normal Psych Mental Status: mental status grossly normal Course Vital Signs Vital signs: Vital Signs Temperature 37 C 06/15/22 14:15 Pulse 77 06/15/22 14:15 Respiratory Rate 18 06/15/22 14:15 Blood Pressure 124/68 06/15/22 14:15 Pulse Oximetry 98 06/15/22 14:15 Temperature 37 C 06/15/22 14:15 Temperature Source Skin 06/15/22 14:15 Pulse 77 06/15/22 14:15 Respiratory Rate 18 06/15/22 14:15 Respiratory Effort Normal 06/15/22 14:18 Blood Pressure 124/68 06/15/22 14:15 Pulse Oximetry 98 06/15/22 14:15 Oxygen Delivery Method Room Air 06/15/22 14:15 Oxygen Flow Rate 0 06/15/22 14:15 Pain Level 5 06/15/22 14:15 Comment any pressure pain increases to an 8 06/15/22 14:15
== END 2022-06-15 15:06 | disposition home or self-care (01) ==
PROVIDERS: Emergency Provider Emergency Medicine
DX: S63.501A Unspecified sprain of right wrist, initial encounter (principal); X50.0XXA Overexertion from strenuous movement or load, initial encounter
CPT/HCPCS: 29125; 99282; 73110; 99283

== ENCOUNTER 2023-04-10 18:29 | Emergency (ER) | payer SELFPAY ==
[2023-04-10 18:32] VITALS: BP 140/84; PULSE 90; RESP 20; TEMP 36.8; O2SAT 98
[2023-04-10 19:05] VITALS: BP 140/84; PULSE 90; RESP 20; TEMP 36.8; O2SAT 98
[2023-04-10] MEDS: Penicillin V POTASSIUM 500 MG TAB PO (19:06)
--- NOTE | 2023-04-11 15:33 | ED.GENADUL_ITS ---
Discharge Plan Disposition Patient Disposition: Home Condition: Stable Discharge Details Clinical Impression: Pain due to dental caries Primary Care Provider: Unknown,Unknown ED Provider: Sandie Taylor Home Meds and New Rx's Prescriptions: New penicillin V potassium 500 mg tablet 500 mg PO QID Qty: 40 0RF No Action ibuprofen [IBU] 600 mg tablet 600 mg PO Q8H Discharge Instructions Instructions: Dental Caries (ED) Additional Instructions: Take the penicillin as prescribed. You may alternate ibuprofen 600 mg every 6 hours and Tylenol 650 mg every 6 hours as needed for pain. Try warm salt water rinses as well. Call a dentist on the list that you were given to make a follow-up appointment. You will likely get a need to have your teeth removed. Return to ED for pronounced facial swelling, fever of 100.4 or above, red hot lip and cheek, any other concerns. Discharge Data Discharge Date/Time-TO BE ENTERED AT DEPARTURE: 04/10/23 19:06 HPI General Date/Time Provider Initiated Documentation: 04/10/23 18:40 . HPI Narrative: This 38-year-old male patient presents with a chief complaint of front left incisor pain that began several days ago. He states he was chewing on something and the tooth broke. Since then he has had slowly increasing pain. He says he can see some swelling above his lip on the same side. He has had no fever or chills. He is able to swallow without difficulty. There is no cold or heat sensitivity. He says pressure makes it hurt. He has pronounced dental caries and says he lost his dental insurance a couple years ago. He is a smoker. He has made no attempt to get in touch with a dentist. He has no swollen glands or difficulty breathing. He has no ear pain. Related Data Home Medications Medication Instructions Recorded Confirmed ibuprofen 600 mg tablet (IBU) 600 mg PO Q8H 04/10/23 04/10/23 penicillin V potassium 500 mg 500 mg PO QID #40 tabs 04/10/23 tablet Previous Rx's Medication Instructions Recorded penicillin V potassium 500 mg 500 mg PO QID #40 tabs 04/10/23 tablet Allergies Allergy/AdvReac Type Severity Reaction Status Date / Time bee venom protein (honey bee) Allergy Mild Skin Rash Unverified 04/10/23 18:34 hydrocodone [From Vicodin] AdvReac Intermediate Other (See Unverified 04/10/23 18:34 Comment) oxycodone [From Percocet] AdvReac Intermediate Other (See Verified 04/10/23 18:34 Comment) General Stated Complaint: DentalOral FABI: 4 Review of Systems Narrative: See HPI Exam Narrative Exam Narrative: General/constitutional: Awake and alert white male, no apparent distress Skin: [place] warm dry HEENT: Normocephalic and atraumatic, face is normal-appearing with no discernible edema, the patient has no palpable induration over his upper lip on either side. Patient's nose is normal. 10 teeth patient shows pronounced dental caries down to the gum. There is no gum abnormality over his right front incisor but he has a little bit of tenderness there. His posterior oropharynx is widely patent and his mucous membranes are moist. Neck: No lymphadenopathy; supple with full range of motion Coronary: Regular rate and rhythm with no murmur rub Respiratory: clear to auscultation bilaterally Extremities: Moves all extremities Neuro: Alert and oriented x 3, moves all extremities Course Vital Signs Vital signs: Vital Signs Temperature 36.8 C 04/10/23 18:32 Pulse 90 04/10/23 18:32 Respiratory Rate 20 04/10/23 18:32 Blood Pressure 140/84 04/10/23 18:32 Pulse Oximetry 98 04/10/23 18:32 Temperature 36.8 C 04/10/23 19:05 Temperature Source Oral 04/10/23 18:32 Pulse 90 04/10/23 19:05 Respiratory Rate 20 04/10/23 19:05 Respiratory Effort Normal 04/10/23 18:35 Blood Pressure 140/84 04/10/23 19:05 Pulse Oximetry 98 04/10/23 19:05 Oxygen Delivery Method Room Air 04/10/23 18:32 Oxygen Flow Rate 0 04/10/23 18:32 Pain Level 4 04/10/23 19:05 Medical Decision Making Patient was given penicillin to take for early infection. He will take ibuprofen 600 mg every 6 hours and/or Tylenol 650 mg every 6 hours as needed for pain. I did give him a dental list and told him he needs to start calling for appointments. He may be able to do a payment plan. He will return for grossly swollen face, fever of 100.4 or above, facial redness, any other concerns. Quality:SDOH Health Related Social Needs: No Data to Display PFSH All Active Problems Left shoulder pain (Acute) Pain due to dental caries (Acute) Social History Smoking/Tobacco Use Status: Current every day Tobacco Type: cigarettes Smoking risk assessment performed?: Yes Alcohol Intake: never Drug use: Occasionally Substance use type: marijuana Do you feel safe at home: Yes Do you feel safe in your relationship?: Yes
== END 2023-04-10 19:06 | disposition home or self-care (01) ==
LOC: ER 19:08
PROVIDERS: Emergency Provider Emergency Medicine
DX: R68.84 Jaw pain (principal); K04.7 Periapical abscess without sinus
CPT/HCPCS: 99283

== ENCOUNTER 2023-04-12 08:47 | Emergency (ER) | payer SELFPAY ==
[2023-04-12 08:50] VITALS: BP 139/91; PULSE 118; RESP 18; TEMP 36.2; O2SAT 97
[2023-04-12] MEDS: Bupivacaine 0.5% Pres-Free 30 ML VIAL (09:36)
[2023-04-12 09:42] VITALS: PULSE 92; RESP 16; O2SAT 98
--- NOTE | 2023-04-12 09:57 | ED.GENADUL_ITS ---
Discharge Plan Disposition Patient Disposition: Home Discharge Details Clinical Impression: Abscess, dental Primary Care Provider: Unknown,Unknown ED Provider: Tayler Valiente Home Meds and New Rx's Prescriptions: New penicillin V potassium 500 mg tablet 500 mg PO QID 5 Days Qty: 20 0RF Discontinued penicillin V potassium 500 mg tablet 500 mg PO QID Qty: 40 0RF No Action ibuprofen [IBU] 600 mg tablet 600 mg PO Q8H Discharge Instructions Instructions: Dental Abscess (ED) Additional Instructions: Take antibiotics as prescribed Take ibuprofen 600 mg every 8 hours with food Gargle with warm salt water 3-4 times a day, use the gauze as needed as the abscess will likely to continue to drain Follow-up with dentist listed below You may take Tylenol 650 every 4 hours for pain uncontrolled with ibuprofen You may also apply the HurriCaine gel 3-4 times a day on the HPI General Date/Time Provider Initiated Documentation: 04/12/23 08:48 . HPI Narrative: This 38-year-old male presents with abdominal pain started on Monday. He was evaluated in the emergency room and on Monday and started on penicillin. He is taken 4 doses as prescribed He presents today secondary to increased swelling and pain. Denies any difficulty swallowing or shortness of breath. Related Data Home Medications Medication Instructions Recorded Confirmed ibuprofen 600 mg tablet (IBU) 600 mg PO Q8H 04/10/23 04/10/23 penicillin V potassium 500 mg 500 mg PO QID 5 days #20 tabs 04/12/23 tablet Previous Rx's Medication Instructions Recorded penicillin V potassium 500 mg 500 mg PO QID 5 days #20 tabs 04/12/23 tablet Allergies Allergy/AdvReac Type Severity Reaction Status Date / Time bee venom protein (honey bee) Allergy Mild Skin Rash Unverified 04/10/23 18:34 hydrocodone [From Vicodin] AdvReac Intermediate Other (See Unverified 04/10/23 18:34 Comment) oxycodone [From Percocet] AdvReac Intermediate Other (See Verified 04/10/23 18:34 Comment) General Stated Complaint: DentalOral FABI: 4 Course Vital Signs Vital signs: Vital Signs Temperature 36.2 C L 04/12/23 08:50 Pulse 118 H 04/12/23 08:50 Respiratory Rate 18 04/12/23 08:50 Blood Pressure 139/91 H 04/12/23 08:50 Pulse Oximetry 97 04/12/23 08:50 Temperature 36.2 C L 04/12/23 08:50 Temperature Source Tympanic 04/12/23 08:50 Pulse 92 H 04/12/23 09:42 Respiratory Rate 16 04/12/23 09:42 Respiratory Effort Normal 04/12/23 08:57 Blood Pressure 139/91 H 04/12/23 08:50 Blood Pressure Position Sitting 04/12/23 08:50 Pulse Oximetry 98 04/12/23 09:42 Oxygen Delivery Method Room Air 04/12/23 09:42 Oxygen Flow Rate 0 04/12/23 08:50 Pain Level 2 04/12/23 09:42 Procedures Abscess I/D Site: Other (dental) Side (if applicable): Left Sedation/analgesia: None Local Anesthetic: Bupivicaine 0.5% Amount of anesthesia used (mL): 1 Technique: Needle Aspiration and Incised with #11 Blade Amount of fluid expressed (mL): 6 Irrigation: No Packing used?: None Complications: Pain Medical Decision Making 38-year-old male in no acute distress, significant facial swelling to left maxillary region, dental abscess to tooth #10, fluctuant area on the buccal region adjacent No clinical findings consistent with Eddie's angina, maintaining secretions, uvula midline, oropharynx patent Incision and drainage performed, patient had some pain associated with procedure but reports marked improvement post drainage No trismus, pupils equal round reactive to light and accommodation Will continue on penicillin VK 4 times daily Will use HurriCaine gel as needed Gargling with salt water, and dental list supplied Will take ibuprofen 600 mg every 8 hours with food Return precautions reviewed and patient expressed understanding Quality:SDOH Health Related Social Needs: No Data to Display PFSH All Active Problems (Updated 04/12/23 @ 09:28 by JIMBO Enrique) Abscess, dental (Acute) Left shoulder pain (Acute) Pain due to dental caries (Acute) Social History Smoking/Tobacco Use Status: Current every day Tobacco Type: cigarettes Smoking risk assessment performed?: Yes Alcohol Intake: never Drug use: Occasionally Substance use type: marijuana Do you feel safe at home: Yes Do you feel safe in your relationship?: Yes
== END 2023-04-12 09:47 | disposition home or self-care (01) ==
LOC: ER 11:39
PROVIDERS: Emergency Provider Physician Assistant
DX: K04.7 Periapical abscess without sinus (principal); F17.210 Nicotine dependence, cigarettes, uncomplicated
CPT/HCPCS: 10160; 99283; J0665

== ENCOUNTER 2024-11-04 11:29 | Emergency (ER) | payer SELFPAY ==
[2024-11-04 11:38] VITALS: BP 126/78; PULSE 80; RESP 16; TEMP 36.6; O2SAT 94
[2024-11-04 11:58] VITALS: BP 126/78; PULSE 80; RESP 16; TEMP 36.6; O2SAT 94
--- NOTE | 2024-11-04 13:20 | ED.GENADUL_ITS ---
Discharge Plan Disposition Patient Disposition: Home Condition: Stable Discharge Details Clinical Impression: Blood in stool, Vomiting Primary Care Provider: None,None ED Provider: Alli Henderson Home Meds and New Rx's Prescriptions: New pantoprazole [Protonix] 40 mg tablet,delayed release (DR/EC) 40 mg PO DAILY Qty: 30 0RF Discontinued ibuprofen [IBU] 600 mg tablet 600 mg PO Q8H Discharge Instructions Instructions: Bloody Stools, Adult ED Additional Instructions: Please follow-up with your primary care physician and general surgery. Return to the emergency department immediately for any worsening or new concerning symptoms. Referrals: [facility] [Provider Group] Discharge Data Discharge Date/Time-TO BE ENTERED AT DEPARTURE: 11/04/24 15:01 HPI General Mode of arrival: ambulatory . Date/Time Provider Initiated Documentation: 11/04/24 12:10 . Limitations to Documentation: no limitations . Information obtained by: patient . HPI Narrative: HISTORY OF PRESENT ILLNESS This is a 39-year-old male presenting with blood in his stool. This morning, the patient noticed blood in his stool. He also experienced vomiting approximately every 5 miles during his commute to work. He reports that he was feeling normal yesterday and has no history of similar symptoms. He has recently increased his fiber intake.. His bowel movement today was formed with blood mixed in, which was neither dark nor bright red. He reports no liquid blood discharge or rectal bleeding. No painful rectal masses. He is experiencing discomfort in his lower back but reports no abdominal pain. He has not consumed untreated water or traveled recently. He has not experienced diarrhea and his bowel movements have been consistent. He does not have a primary care physician and is uninsured. He experienced some back cramps last night, which he attributes to sitting around all day on his day off. Related Data Home Medications ?Medication ?Instructions ?Recorded ?Confirmed pantoprazole 40 mg tablet,delayed 40 mg PO DAILY #30 t abs 11/04/24 release (Protonix) Previous Rx's ?Medication ?Instructions ?Recorded pantoprazole 40 mg tablet,delayed 40 mg PO DAILY #30 t abs 11/04/24 release (Protonix) Allergies Allergy/AdvReac Type Severity Reaction Status Date / Time bee venom protein (honey bee) Allergy Mild Skin Rash Unverified 11/04/24 11:43 hydrocodone (From Vicodin) AdvReac Intermediate Other (See Unverified 11/04/24 11:43 Comment) oxycodone (From Percocet) AdvReac Intermediate Other (See Verified 11/04/24 11:43 Comment) General Stated Complaint: Abd Prob FABI: 3 Review of Systems All systems reviewed & are unremarkable except as noted in HPI and below Constitutional Constitutional: Denies fever(s) Gastrointestinal Gastrointestinal: Reports as per HPI, Denies melena, Denies coffee ground emesis, Denies diarrhea and Denies hematemesis Exam Const General: cooperative and no acute distress HENMT Mouth: moist mucous membranes Eyes Conjunctivae: normal conjunctivae Sclera: normal sclerae Neck Neck: trachea midline and supple Resp Auscultation: clear to auscultation bilaterally, no rales, no rhonchi and no wheezes Cardio Rate: regular rate and not tachycardic Rhythm: regular rhythm GI Palpation: soft, not firm, no guarding, no masses, not rigid and nontender Skin General skin exam: no rashes or lesions noted Neuro General: patient alert, patient awake and tone normal Course Vital Signs Vital signs: Vital Signs Temperature 36.6 C 11/04/24 11:38 Pulse 80 11/04/24 11:38 Respiratory Rate 16 11/04/24 11:38 Blood Pressure 126/78 11/04/24 11:38 Pulse Oximetry 94 11/04/24 11:38 Temperature 36.6 C 11/04/24 11:58 Temperature Source Oral 11/04/24 11:58 Pulse 80 11/04/24 11:58 Respiratory Rate 16 11/04/24 11:58 Blood Pressure 126/78 11/04/24 11:58 Blood Pressure Position Supine 11/04/24 11:58 Pulse Oximetry 94 11/04/24 11:58 Oxygen Delivery Method Room Air 11/04/24 11:58 Oxygen Flow Rate 0 11/04/24 11:58 Pain Level 5 11/04/24 11:58 Medical Decision Making ASSESSMENT AND PLAN Initial Assessment: 39-year-old male presenting with blood mixed into stool and vomiting this am. Patient is hemodynamically stable. Abdominal exam is benign. Differential Diagnosis: - Gastroenteritis - Ulcerative disease ED Course: - Comprehensive diagnostic labs were performed - nondiagnostic - Patient reassessed and remained hemodynamically stable with no recurrent episodes. -Will initiate PPI. - Plan for discharge with outpatient follow-up. Usual and customary discharge instructions were reviewed. Clinical Impression: - Hematochezia - Nausea Disposition: - Follow-Up: Establish primary care -patient is currently having difficulty securing insurance. Patient verbalized the importance of timely follow-up. Patient Education: Inform medical team if another episode of hematochezia occurs. Discussed potential need for colonoscopy. This document was written with the assistance of OSCAR Potts. The patient consented to its use. Lab Data Lab results reviewed: Yes I reviewed the patient's lab results. Labs: Laboratory Tests Range/Units 11/04/24 11/04/24 13:31 13:31 WBC (4.4-10.8) 10^3/uL 9.69 RBC (4.36-5.78) 10^6/uL 5.27 Hgb (13.5-17.5) g/dL 15.7 Hct (40.0-50.0) % 46.2 MCV (80-95) fL 88 MCH (27.0-33.0) pg 29.8 MCHC (32.0-36.0) % 34.0 RDW (11.8-14.1) % 12.4 Plt Count (130-400) 10^3/uL 305 MPV (8.0-11.0) fL 9.9 Immature Gran % % 0.4 Neutrophils % % 72.1 Lymphocytes % % 18.8 Monocytes % % 6.7 Eosinophils % % 1.3 Basophils % % 0.7 Nucleated RBC % (0.0-0.3) % 0.0 Absolute Neutrophils (1.2-6.7) 10^3/uL 6.98 H Absolute Lymphocytes (1.2-3.4) 10^3/uL 1.82 Absolute Monocytes (0.1-0.8) 10^3/uL 0.65 Absolute Eosinophils (0.0-0.7) 10^3/uL 0.13 Absolute Basophils (0.0-0.2) 10^3/uL 0.07 Sodium (136-145) mmol/L 140 Potassium (3.5-5.1) mmol/L 4.1 Chloride (98-107) mmol/L 103 Carbon Dioxide (21.0-32.0) mmol/L 28.4 Anion Gap (3-11) mmol/L 8.6 BUN (7-18) mg/dL 11 Creatinine (0.70-1.30) mg/dL 1.1 Est GFR (CKD-EPI 2020) (mL/min/1.73m2) 88.67 Glucose (74-106) mg/dL 88 Calcium (8.5-10.1) mg/dL 9.0 Total Bilirubin (0.2-1.0) mg/dL 0.4 AST (15-37) U/L 24 ALT (16-63) U/L 42 Alkaline Phosphatase (46-116) U/L 75 Total Protein (6.4-8.2) g/dL 7.9 Albumin (3.4-5.0) g/dL 4.0 Lipase Cancelled 33 PFSH All Active Problems (Updated 11/04/24 @ 14:41 by Alli Henderson MD) Vomiting (Acute) Blood in stool (Acute) Left shoulder pain (Acute) Pain due to dental caries (Acute) Social History Smoking/Tobacco Use Status: Current every day Tobacco Type: cigarettes Smoking risk assessment performed?: Yes Alcohol Intake: never Drug use: Occasionally Substance use type: marijuana Do you feel safe at home: Yes Do you feel safe in your relationship?: Yes
[2024-11-04 13:52] LABS: Abs Immature Grans 0.04 10^3/uL (0.0-0.06); HCT 46.2 % (40.0-50.0); HGB 15.7 g/dL (13.5-17.5); Immature Grans % 0.4 %; MCH 29.8 pg (27.0-33.0); MCHC 34.0 % (32.0-36.0); MCV 88 fL (80-95); MPV 9.9 fL (8.0-11.0); Platelet Count 305 10^3/uL (130-400); RBC 5.27 10^6/uL (4.36-5.78); RDW 12.4 % (11.8-14.1); RDW-SD 40.1 fL; WBC 9.69 10^3/uL (4.4-10.8)
[2024-11-04 13:59] LABS: ALT 42 U/L (16-63); AST 24 U/L (15-37); Albumin 4.0 g/dL (3.4-5.0); Alkaline Phosphatase 75 U/L (46-116); Anion Gap 8.6 mmol/L (3-11); BUN 11 mg/dL (7-18); Bilirubin, Total 0.4 mg/dL (0.2-1.0); CO2 28.4 mmol/L (21.0-32.0); Calcium 9.0 mg/dL (8.5-10.1); Chloride 103 mmol/L (98-107); Estimated GFR 88.67 (mL/min/1.73m2); Glucose 88 mg/dL (74-106); Lipase 33 U/L (<78); Potassium 4.1 mmol/L (3.5-5.1); Sodium 140 mmol/L (136-145); Total Protein 7.9 g/dL (6.4-8.2)
[2024-11-04] MEDS: Pantoprazole 40 MG TABCR PO (14:55)
[2024-11-04 14:59] VITALS: BP 117/64; PULSE 72; RESP 16; TEMP 37; O2SAT 99
== END 2024-11-04 15:01 | disposition home or self-care (01) ==
PROVIDERS: Emergency Provider Student in an Organized Health Care Education/Training Program
DX: K92.1 Melena (principal); R11.10 Vomiting, unspecified
CPT/HCPCS: 99283 ×2; 36415; 80053; 83690; 86850; 86900; 86901; 85025

== ENCOUNTER 2024-12-06 14:34 | Emergency (ER) | payer SELFPAY ==
--- NOTE | 2024-12-06 14:30 | DI.US_ITS ---
Exam(s) US SCROTUM EXAM: US SCROTUM CLINICAL HISTORY: left testicular pain. TECHNIQUE: Scrotal ultrasound performed using grayscale, color-flow and spectral Doppler analysis. COMPARISON: No exams were available for comparison FINDINGS: Right testicle: 4.2 x 2.4 x 3.3 cm Echogenicity: Normal. Contour: Smooth. Mass: None seen. Microlithiasis: None. Hydrocele: There is a small right hydrocele measuring 2.8 x 0.9 x 1.9 cm. Variocele: None. Hernia: No peristalsing bowel loop identified. Epididymis: Normal. Left testicle: 4.3 x 2.7 x 3.4 cm Echogenicity: There is no evidence of a testicular mass. There is increased vascularity to the left testicle. Contour: Smooth. Mass: None seen. Microlithiasis: None. Hydrocele: There is a hydrocele measuring 4.4 x 1.5 x 1.6 cm. Variocele: None. Hernia: No peristalsing bowel loop identified. Epididymis: There may be very mild increased blood flow to the left epididymis. DOPPLER: Color: Symmetric and uniform, no hyperemia. IMPRESSION: 1. Hyperemic left testicle consistent with an orchitis. 2. There is no evidence of a testicular mass. 3. Mild increased epididymal blood flow suggesting mild epididymitis. 4. Bilateral hydroceles. DATA REPOSITORY:
[2024-12-06 14:36] VITALS: BP 137/79; PULSE 107; RESP 18; TEMP 37; O2SAT 98
--- NOTE | 2024-12-06 15:12 | ED.GENADUL_ITS ---
Discharge Plan Disposition Patient Disposition: Home Condition: Stable Discharge Details Clinical Impression: Orchitis of left testicle Primary Care Provider: None,None ED Provider: Yvonne Barnes Home Meds and New Rx's Prescriptions: New ciprofloxacin HCl [Cipro] 500 mg tablet 500 mg PO BID 13 Days Qty: 26 0RF No Action pantoprazole [Protonix] 40 mg tablet,delayed release (DR/EC) 40 mg PO DAILY Qty: 30 0RF Discharge Instructions Instructions: Epididymitis and orchitis Additional Instructions: You were seen in the emergency department today for evaluation of testicular pain and were found to have a condition known as orchitis. This is typically infectious in nature and you were started on antibiotics, which you should take twice a day for the next 2 weeks. Please take all this medication until it is gone, even if you start to feel better. Please maintain good hydration and consider a probiotic or yogurt with live active cultures while on antibiotics. Please use therapeutic dosing of Tylenol (acetaminophen) & Advil (ibuprofen) in an alternating fashion as follows: Take 1000mg of Tylenol every 6 hours without missing doses- that is 4 times per day. [place] in between the Tylenol doses, take 600mg of Advil also on a 6 hour schedule, that is also 4 times per day. With this strategy, you will be taking something for fever/pain as often as every 3 hours. The daily maximum dosing of Tylenol is 4000mg, and the daily maximum dosing of Advil is 2400mg. Please note that some common cold medications & prescription pain medications may contain acetaminophen and you need to read OTC drug labels and factor that in to maximum daily doses. You may consider wearing tight supportive underpants or a truss/jockstrap for support of your scrotum while healing. I have placed a referral to establish with a primary care provider to discuss this visit and any symptoms that change, worsen, or persist. Please follow-up with your primary care provider in the next few days to discuss this visit and any symptoms that change, worsen, or persist. Thank you for allowing us to be part of your care. HPI General Mode of arrival: ambulatory . Date/Time Provider Initiated Documentation: 12/06/24 14:37 . Limitations to Documentation: no limitations . Information obtained by: patient and old records reviewed . HPI Narrative: This is a 39-year-old male patient with without significant past medical history presenting for evaluation of left testicular pain. This pain has been present since Monday, started while sitting and was not preceded by any trauma or injury. It is gradually worsened, sometimes radiates up into his groin. It is not associated with any skin changes but he has noted some swelling. Denies associated penile discharge, dysuria, hematuria. Is sexually active only with his , with whom he has been for many many years, she has not had any recent vaginal complaints concerning for STI. Related Data Home Medications Medication Instructions Recorded Confirmed pantoprazole 40 mg tablet,delayed 40 mg PO DAILY #30 t abs 11/04/24 12/06/24 release (Protonix) ciprofloxacin HCl 500 mg tablet 500 mg PO BID 13 days #26 tabs 12/06/24 (Cipro) Previous Rx's Medication Instructions Recorded pantoprazole 40 mg tablet,delayed 40 mg PO DAILY #30 t abs 11/04/24 release (Protonix) ciprofloxacin HCl 500 mg tablet 500 mg PO BID 13 days #26 tabs 12/06/24 (Cipro) Allergies Allergy/AdvReac Type Severity Reaction Status Date / Time bee venom protein (honey bee) Allergy Mild Skin Rash Unverified 12/06/24 14:39 hydrocodone (From Vicodin) AdvReac Intermediate Other (See Unverified 12/06/24 14:39 Comment) oxycodone (From Percocet) AdvReac Intermediate Other (See Verified 12/06/24 14:39 Comment) General Stated Complaint: Male Reproductive Problem FABI: 3 Exam Narrative Exam Narrative: Gen: Awake and alert, in no apparent distress HEENT: Non-icteric sclera Neck: Supple Lungs: No apparent respiratory distress, normal respiratory effort. CV: Appears well perfused Abdomen: Non-distended, soft, nontender to palpation without rigidity, rebound, or guarding : Testicular examination supervised by MG Smith, revealing normal external male genitalia, bilaterally preserved cremasteric reflex, swelling and tenderness in a generalized distribution of the left testicle with no specific tenderness to palpation overlying the epididymis. No overlying scrotal skin changes MSK: Moves 4 extremities without apparent limitation in ROM Skin: Visualized skin without rashes, cyanosis. Neuro: Normal Gait, no obvious focal deficits or facial asymmetry. Speaks in full, clear sentences. Psych: Appropriate for situation. Course Vital Signs Vital signs: Vital Signs Temperature 37 C 12/06/24 14:36 Pulse 107 H 12/06/24 14:36 Respiratory Rate 18 12/06/24 14:36 Blood Pressure 137/79 12/06/24 14:36 Pulse Oximetry 98 12/06/24 14:36 Temperature 37 C 12/06/24 14:36 Temperature Source Temporal Artery Scan 12/06/24 14:36 Pulse 107 H 12/06/24 14:36 Respiratory Rate 18 12/06/24 14:36 Blood Pressure 137/79 12/06/24 14:36 Pulse Oximetry 98 12/06/24 14:36 Pain Level 7 12/06/24 14:36 Medical Decision Making This is a 39-year-old male patient presenting for evaluation of testicular pain. Differential includes but is not limited to torsion, testicular necrosis, orchitis, epididymitis, hydrocele, varicocele. The patient has noted history of diabetes, overlying skin changes or systemic symptoms to increase my concern for Siomara's gangrene. Urinalysis obtained, and shows no evidence of UTI, does show some proteinuria. No hematuria noted. We obtained a testicular ultrasound, which shows hyperemia and increased vascularity of the left testicle and epididymis with a small surrounding hydrocele, consistent with orchitis and mild epididymitis. Given that the patient is at low risk for STIs, we will treat with ciprofloxacin, 500 mg twice daily for 2 weeks. I counseled the patient on supportive undergarments, and provided him with a referral to establish with primary care. At this time, the patient has had a full medical evaluation and is safe for discharge to home. They are hemodynamically stable, ambulatory, and tolerating PO. They are understanding of the follow-up plan and return precautions. They left our facility without incident. Yvonne Barnes MD [facility] All Active Problems (Updated 12/06/24 @ 15:46 by Yvonne Barnes MD) Orchitis of left testicle (Acute) Left shoulder pain (Acute) Pain due to dental caries (Acute) Social History Smoking/Tobacco Use Status: Current every day Tobacco Type: cigarettes Smoking risk assessment performed?: Yes Alcohol Intake: never Drug use: Occasionally Substance use type: marijuana Do you feel safe at home: Yes Do you feel safe in your relationship?: Yes
[2024-12-06 15:38] LABS: Glucose Negative (Negative)
[2024-12-06 15:44] LABS: C & S Indicated? No; RBC 0-2 HPF (0-2); WBC Negative HPF (0-5)
[2024-12-06 16:04] VITALS: BP 124/73; PULSE 98; RESP 20; TEMP 37; O2SAT 98
== END 2024-12-06 16:08 | disposition home or self-care (01) ==
LOC: ER 16:04
PROVIDERS: Emergency Provider Emergency Medicine
DX: N45.2 Orchitis (principal)
CPT/HCPCS: 99283; 99284; 76870; 81003; 81015